=== PATIENT | female | born 1975 | race Caucasian/White ===

== ENCOUNTER 2016-11-11 06:44 | Day surgery (SDC) | payer BC ==
[2016-11-07 14:41] VITALS: BMI 34.0
[2016-11-11] MEDS ORDERED: CEFAZOLIN 2 GM in DEXTROSE 5%-WATER - 100 ML IVPB ONE (07:00)
--- NOTE | 2016-11-11 07:01 | HP ---
History & Physical Update - History History: No Change - Physical Physical: No Change - Assessment Assessment: No Change - Plan Plan: No Change (Endometriosis, pelvic pain - for definitive therapy with hysterectomy)
[2016-11-11] MEDS ORDERED: MIDAZOLAM HCL 2 MG/2 ML SINGLE DOSE VIAL ONE (08:06)
[2016-11-11] MEDS ORDERED: ROCURONIUM BROMIDE 50 MG/5 ML VIAL ONE (09:37)
[2016-11-11] MEDS ORDERED: NEOSTIGMINE METHYLSULFATE 0.5 MG/ML - 10 ML MDV ONE (10:14)
[2016-11-11] MEDS ORDERED: METOPROLOL TARTRATE 5 MG/5 ML VIAL ONE (10:14)
[2016-11-11] MEDS ORDERED: GLYCOPYRROLATE 0.2 MG/1 ML VIAL ONE (10:14)
[2016-11-11] MEDS ORDERED: BUPIVACAINE HCL/PF 0.5% (5MG/ML) 10 ML VIAL ONE (10:16)
[2016-11-11] MEDS ORDERED: ceFAZolin SODIUM 1 GM VIAL ONE ×2 (10:18→10:29)
[2016-11-11] MEDS ORDERED: KETOROLAC TROMETHAMINE 30 MG/1 ML VIAL ONE (10:18)
[2016-11-11] MEDS ORDERED: LIDOCAINE HCL/PF 2% SDV 5ML VIAL ONE (10:18)
[2016-11-11] MEDS ORDERED: DEXAMETHASONE SOD PHOSPHATE 4 MG/1 ML VIAL ONE (10:18)
[2016-11-11] MEDS ORDERED: LIDOCAINE HCL 2% JELLY (5 ML/TUBE) ONE (10:18)
[2016-11-11] MEDS ORDERED: oxyCODONE HCL 5 MG TABLET PO PRN (10:34)
[2016-11-11] MEDS ORDERED: IBUPROFEN 800 MG/8 ML IJ IVPB PRN (10:34)
[2016-11-11] MEDS ORDERED: SENNOSIDES/DOCUSATE COMBO (SENNA PLUS) TABLET (UD) PO PRN (10:34)
[2016-11-11] MEDS ORDERED: IBUPROFEN 800 MG/8 ML IJ IVPB ONE (10:36)
--- NOTE | 2016-11-11 10:39 | OP ---
Operative Note - Note: Operative Date: 11/11/16 Pre-Operative Diagnosis: endometriosis, pelvic pain Operation: Robotic Assisted Total Laparoscopic Hysterectomy, right salpingectomy , RIVER Findings: adhesions from omentum to anterior abdominal wall, normal appearing uterus, right fallopian tube right and ovary Surgeon: Teresa Maxwell Job Placement Specialist: Daina Hanna Anesthesiologist/ENGRAVER HAND HARD METALS: Julia Kumar MD Anesthesia: General Specimens Removed: uterus, cervix, right fallopian tube, left peritoneal cyst X 2 Estimated Blood Loss (mls): 50 Drains & Tubes with Location: bourgeois catheter with 150cc of clear yellow urine Fluid Volume Replaced (mls): 1,500 (crystalloid) Operative Report Dictated: Yes
[2016-11-11] MEDS ORDERED: LACTATED RINGERS SOLUTION 1,000 ML IV SCH (10:45)
[2016-11-11] MEDS: ONDANSETRON 4 MG/2 ML VIAL IVPUSH PRN ×2 (11:25→17:50)
--- NOTE | 2016-11-11 12:46 | OP ---
DATE OF OPERATION: 11/11/2016 PREOPERATIVE DIAGNOSIS: Pelvic pain with known endometriosis. POSTOPERATIVE DIAGNOSIS: Pelvic pain with known endometriosis. PROCEDURE: Robotic-assisted laparoscopic total hysterectomy and right salpingectomy. SURGEON: Teresa Maxwell DO MANAGER PATIENT: Daina Hanna MD ANESTHESIA: General by Dr. Belinda Kumar COMPLICATIONS: None. ESTIMATED BLOOD LOSS: 60 mL. Sponge, needle, and instrument count was reported as correct. DISPOSITION: Stable to PACU. BRIEF HISTORY AND PROCEDURE: The patient is a 41-year-old female who has been seen in the office with a many-year history of endometriosis status post several laparoscopic procedures for endometriosis excision. The patient desires definitive management for her endometriosis at this time. The patient was counseled on all of her options, and she would like to undergo a hysterectomy. Due to her prior history of endometriosis and several surgeries, the plan was made to attempt robotic hysterectomy with possible conversion to laparotomy. The patient was aware of the possibility, and consent for a robotic-assisted laparoscopic hysterectomy was signed in the office. The patient was admitted to [facility] on November 11, 2016 where consents were reconfirmed. DESCRIPTION OF PROCEDURE: She was then taken back to the operating room where she was given general anesthesia and placed in the dorsal lithotomy position. was then prepped and draped in the usual sterile fashion. A hard time-out was performed. A Haro catheter was placed under sterile conditions, and a medium VCare device was placed intravaginally as a uterine manipulator. A 5-mm skin incision was then created in the left upper quadrant approximately 2 fingerbreadths below the lowest rib in the mid clavicular line. A Veress needle was placed in the abdomen, and the abdomen was insufflated with CO2 gas. A 5-mm trocar was placed, and a camera was inserted. Some adhesions from the omentum to the anterior abdominal wall were appreciated at this time; however, the uterus appeared to be free of adhesions, and the pelvis appeared to be clear of adhesion. At this point, an 8-mm skin incision was created supraumbilically, and an 8-mm trocar was placed under direct visualization using the harmonic device. The ventral adhesion was taken down at this time. Next, the remainder of the trocars for the robot were placed under direct visualization. The robot was docked. Attention was then turned left side where the left fallopian tube was clamped, cauterized, and cut with the vessel sealer device at the cornua and then the uteroovarian ligament and anastomosis was clamped, cut, and ligated in several passes with the vessel sealer device. Next, the round ligament was identified, clamped, cut, and ligated with the vessel sealer device then the bladder flap was begun on the left side and carried anteriorly to the right side using sharp dissection. The left uterine artery was identified, clamped, cut, and ligated in several passes with the vessel sealer device until we reached the level of the uteroovarian ligaments. The same was repeated on the right side of the uterus starting with the right fallopian tube and uteroovarian anastomosis, which was clamped, cut, and ligated with the vessel sealer device in several passes and then the round ligament was clamped, cauterized, and cut with the vessel sealer device. A bladder flap was extended all the way to the right side at this time, and the bladder was dissected off its attachment to the lower uterine segment and the cervix at this time. The right uterine artery was identified, clamped, cut, and ligated in several passes with the vessel sealer device down to the level of the uterosacral ligaments. Then the colpotomy was begun anteriorly and carried in a 360-degree fashion until the uterus was detached from the cervical vaginal junction. The uterus was then removed through the vagina at this time. The right fallopian tube was identified and dissected off its attachment to the ovary and the mesoappendix using the vessel sealer device then removed through the vagina. Two left peritoneal cysts were excised and removed through the vagina at this time. The pelvis was irrigated and suctioned. Using the 0 V-Lock suture, the vaginal cuff was reapproximated in a running fashion. The pelvis was copiously irrigated and suctioned at this time. Hemostasis was appreciated. The ureters were inspected and noted to be within normal caliber and peristalsing. The needle was then removed through the trocar at this time. Again, inspection of the surgical site revealed hemostasis. Instruments were then removed under direct visualization. The abdomen was desufflated. The trocars were removed. The robot was then docked. The skin was reapproximated using 0 Biosyn suture and skin glue. Marcaine was injected in the incision sites. The Haro catheter was noted to be draining clear yellow urine. There was 150 mL of clear yellow urine removed from the catheter at this time. The patient was then awoken from anesthesia. Sponge, needle, and instrument count had been reported to be correct. She is now recovering in stable condition in the PACU at the time of this dictation. TERESA MAXWELL DO /[id number]
--- NOTE | 2016-11-11 15:31 | CONSULT ---
Consult - text type - Consultation Consultation Note: NEUROLOGY CONSULTATION is greatly appreciated: This 41 yo RH woman is examined in the PACU with her at the bedside. She known to me from prior treatment for Migraine headaches which responded to Topiramate. In recent years she has been followed by Dr. Butler and takes Fioricet "Almost every day.' Now s/p Hysterectomy for endometriosis and chronic pelvic pain. I the past, the patient has had multiple doses of Propofol for endoscopic exams. She notes that "most of the time" she is slow to wake up and then goes through a period of involuntary "shaking" without obscuration of consciousness.The same thing happened today after general anesthesia with RN's noting "Tremors" of of both arms > legs lasting for a few hours and now having resolved. The patient feels fine although still "groggy." The did not see this, or any other, episode of shaking and has never witnessed shaking at home. ROS sig for chronic nocturnal leg pains and insomnia. NAV: Obses. Neck supple. Cor reg. NEURO: Awake, alert, Ox3. MS/speech: Normal CN II-XII: Normal Motor: No drift, tremor or myoclonus. Normal strength, tone , bulk, and reflexes. Toes downgoing. Coord: No FTN dystaxia Sensory: Normal Gait: deferred. IMP: 1. Normal neurological exam. 2. Patients can exhibit both shaking/rigors (such as seen with infection ) as well as myoclonic jerks when coming out of anesthesia. 3. Migraine headaches/Chronic daily headache syndrome (drug rebound headaches due to Fioricet). 4. Restless LImbs Syndrome (RLS). Suggestions: Reassure the patient. Neuro f/u as outpatient to D/C Fioricat and establish an effective prophylactic strategy for Chronic migraines and to start a dopamine agonist for chronic RLS/insomnia. Thank you very much, Chema Galeana MD
[2016-11-11] MEDS: HYDROmorphone HCL CARPU-JECT 1 MG/1 ML DISP.SYRIN IVPB PRN ×2 (16:42→21:17)
[2016-11-11] MEDS ORDERED: IBUPROFEN 600 MG TABLET (FP) PO PRN ×2 (19:00→20:00)
[2016-11-12] MEDS: HYDROmorphone HCL CARPU-JECT 1 MG/1 ML DISP.SYRIN IVPB PRN (04:12)
[2016-11-12] MEDS: oxyCODONE HCL 5 MG TABLET PO PRN ×3 (08:04→21:44)
[2016-11-12] MEDS: ACETAMINOPHEN 325 MG TABLET (FP) PO PRN ×3 (08:05→21:45)
[2016-11-12] MEDS: SIMETHICONE 80 MG TAB.CHEW (FP) PO PRN ×3 (08:06→21:43)
[2016-11-12] MEDS ORDERED: traMADol HCL 50 MG TABLET PO PRN (08:14)
[2016-11-12] MEDS ORDERED: ACETAMINOPHEN/CAFFEINE/BUTALBITAL 1 TAB PO PRN (08:14)
[2016-11-12 08:26] LABS: BASOPHIL 0.5 % (0-2.0); MCH 26.9 pg (25.7-33.7); MCHC 32.3 g/dl (32.0-36.0); MEAN CELL VOLUME 83.2 fl (80-96); MEAN PLT VOLUME 8.9 fl (7.5-11.1); NEUTROPHILS 86.6 % (42.8-82.8); PLATELET COUNT 243 K/MM3 (134-434); WHITE BLOOD COUNT 14.8 K/mm3 (4.0-10.0)
[2016-11-12] MEDS: ENOXAPARIN NA (PORCINE) 40 MG/0.4 ML DISP.SYRIN SQ SCH (09:12)
[2016-11-12] MEDS: METOPROLOL SUCCINATE 25 MG TAB.SR.24H (FP) PO SCH (09:12)
[2016-11-12] MEDS: ASPIRIN COATED 81 MG TABLET.EC PO SCH (09:12)
[2016-11-12] MEDS ORDERED: IBUPROFEN 800 MG/8 ML IJ IVPB PRN (09:15)
--- NOTE | 2016-11-12 09:20 | PN ---
Progress Note (short form) - Note Progress Note: Post op day#1.S/P Robotic laproscopic hysterectomy under Ga uneventful Patient stable but c/o pain score of 7-8/10 on mutiple pain medication.She want to take very little narcotics as they cause her constipation and nausia .So put her on Caldolor IV.No any anesthesia related problem.Will f/u if needed.
--- NOTE | 2016-11-12 10:05 | PN ---
Progress Note, Physician History of Present Illness: Pt POD#1 s/p Robotic Hysterectomy for endometriosis. Feeling well overall but having some pain. Has h/o SVT and has internal internet marketing consultant connected which is transmitting information to her senior geotechnical engineer at [facility]. Feels no CP/SOB/ Palpitations at this time. Had some palpitations earlier today but has resolved. +Void, tolerated breakfast this a.m. Some nausea but no emesis. No other complaints. - Current Medication List Current Medications: Active Medications Acetaminophen (Tylenol -) 650 mg PO Q4H PRN PRN Reason: FEVER OR PAIN Last Admin: 11/12/16 08:05 Dose: 650 mg Acetaminophen/Butalbital/Caffeine (Fioricet -) 1 tablet PO PRN PRN PRN Reason: MIGRAINE Aspirin (Ecotrin -) 81 mg PO DAILY [facility] Last Admin: 11/12/16 09:12 Dose: 81 mg Enoxaparin Sodium (Lovenox -) 40 mg SQ DAILY [facility] Last Admin: 11/12/16 09:12 Dose: 40 mg Hydromorphone HCl (Dilaudid Injection -) 1 mg IVPB Q4H PRN PRN Reason: PAIN Last Admin: 11/12/16 04:12 Dose: 1 mg Lactated Ringer's (Lactated Ringers Solution) 1,000 mls @ 125 mls/hr IV ASDIR [facility] Last Admin: 11/11/16 23:00 Dose: 125 mls/hr Ibuprofen (Motrin -) 600 mg PO Q4H PRN PRN Reason: PAIN Ibuprofen (Caldolor Injection -) 600 mg IVPB Q6H PRN PRN Reason: FEVER Metoprolol Succinate (Toprol Xl -) 25 mg PO DAILY [facility] Last Admin: 11/12/16 09:12 Dose: 25 mg Oxycodone HCl (Roxicodone -) 5 mg PO Q4H PRN PRN Reason: PAIN LEVEL 1-5 Last Admin: 11/12/16 08:04 Dose: 5 mg Oxycodone HCl (Roxicodone -) 10 mg PO Q4H PRN PRN Reason: PAIN LEVEL 6-10 Senna/Docusate Sodium (Pericolace -) 2 tablet PO HS PRN PRN Reason: CONSTIPATION Simethicone (Mylicon -) 80 mg PO Q4H PRN PRN Reason: GAS Last Admin: 11/12/16 08:06 Dose: 80 mg Tramadol HCl (Ultram -) 50 mg PO PRN PRN PRN Reason: NECK PAIN - Objective Vital Signs: Vital Signs Temperature 98.8 F 11/12/16 08:00 Pulse Rate 66 11/12/16 08:00 Respiratory Rate 18 11/12/16 08:00 Blood Pressure 100/54 11/12/16 08:00 O2 Sat by Pulse Oximetry (%) 98 11/11/16 21:00 Constitutional: Yes: Well Nourished, No Distress, Calm Eyes: Yes: EOM Intact HENT: Yes: Atraumatic, Normocephalic Cardiovascular: Yes: Regular Rate and Rhythm Respiratory: Yes: Regular Gastrointestinal: Yes: Soft Breast(s): Yes: WNL Musculoskeletal: Yes: WNL Extremities: Yes: WNL Wound/Incision: Yes: Clean/Dry, Well Approximated, Open to air Neurological: Yes: Alert, Oriented Psychiatric: Yes: Alert, Oriented Labs: CBC, BMP 11/12/16 07:50 Problem List - Problems (1) History of robot-assisted laparoscopic hysterectomy Code(s): Z90.710 - ACQUIRED ABSENCE OF BOTH CERVIX AND UTERUS Assessment/Plan Pt doing well regular diet encourage ambulation lovenox for VTE PPX awaiting cardiology consultation 2/2 ICM appreciate neurology consult for myoclonic reaction to propofol which has now resolved plan for discharge home later if able to tolerate diet, ambulate, void, pass flatus
--- NOTE | 2016-11-12 15:21 | PN ---
Progress Note (short form) - Note Progress Note: Chief Complaint: Events noted notes reviewed. Abdominal discomfort postoperatively, intermittent dizziness, intermittent palpitations with no clinical evidence of sustained arrhythmia History of Present Illness: Seen and examined. Full consult dictated Medications: Current Medications Acetaminophen (Tylenol -) 650 mg PO Q4H PRN PRN Reason: FEVER OR PAIN Last Admin: 11/12/16 08:05 Dose: 650 mg Acetaminophen/Butalbital/Caffeine (Fioricet -) 1 tablet PO PRN PRN PRN Reason: MIGRAINE Aspirin (Ecotrin -) 81 mg PO DAILY [facility] Last Admin: 11/12/16 09:12 Dose: 81 mg Enoxaparin Sodium (Lovenox -) 40 mg SQ DAILY [facility] Last Admin: 11/12/16 09:12 Dose: 40 mg Hydromorphone HCl (Dilaudid Injection -) 1 mg IVPB Q4H PRN PRN Reason: PAIN Last Admin: 11/12/16 04:12 Dose: 1 mg Lactated Ringer's (Lactated Ringers Solution) 1,000 mls @ 125 mls/hr IV ASDIR [facility] Last Admin: 11/11/16 23:00 Dose: 125 mls/hr Ibuprofen (Motrin -) 600 mg PO Q4H PRN PRN Reason: PAIN Ibuprofen (Caldolor Injection -) 600 mg IVPB Q6H PRN PRN Reason: FEVER Last Admin: 11/12/16 10:47 Dose: 600 mg Metoprolol Succinate (Toprol Xl -) 25 mg PO DAILY [facility] Last Admin: 11/12/16 09:12 Dose: 25 mg Oxycodone HCl (Roxicodone -) 5 mg PO Q4H PRN PRN Reason: PAIN LEVEL 1-5 Last Admin: 11/12/16 08:04 Dose: 5 mg Oxycodone HCl (Roxicodone -) 10 mg PO Q4H PRN PRN Reason: PAIN LEVEL 6-10 Senna/Docusate Sodium (Pericolace -) 2 tablet PO HS PRN PRN Reason: CONSTIPATION Simethicone (Mylicon -) 80 mg PO Q4H PRN PRN Reason: GAS Last Admin: 11/12/16 08:06 Dose: 80 mg Tramadol HCl (Ultram -) 50 mg PO PRN PRN PRN Reason: NECK PAIN Review of Systems - Review of Systems Constitutional: denies: Chills, Fever Cardiovascular: As noted above Respiratory: denies: Cough or sputum production Gastrointestinal: reports: Abdominal Pain, denies nausea, vomiting, diarrhea or constipation Genitourinary: denies: Dysuria Musculoskeletal: denies: Joint Pain Neurological: No symptoms reported Vital Signs: Last Vital Signs Temp Pulse Resp BP Pulse Ox 98.1 F 72 18 93/44 98 11/12/16 14:00 11/12/16 14:00 11/12/16 14:00 11/12/16 14:00 11/11/16 21:00 Intake & Output 11/09/16 11/10/16 11/11/16 11/12/16 23:59 23:59 23:59 23:59 Intake Total 3700 1400 Output Total 3500 700 Balance 200 700 HEENT: RENETTA, EOMI Unicteric Sclera Neck: Supple Negative JVD No Bruit Cardiovascular: Pulse regular rate and rhythm no murmurs, clicks or gallops Respiratory: Clear to auscultation and percussion Gastrointestinal: Soft Benign Normal Bowel Sounds Ext: No Edema Labs: CBC, BMP 11/12/16 07:50 Assessment/Plan ASSESSMENT: 1. Post Robotic hysterectomy for management of endometriosis 2. History of supraventricular tachycardia status post radiofrequency ablation of an accessory pathway 3. Recurrent palpitations with no clear evidence of recurrent supraventricular tachycardia, possible inappropriate sinus tachycardia currently on beta yoni therapy (post [employer]'s LINQ implant, loop recorder declined repeat EP study) 4. Syncope neurocardiogenic syncope to be considered as a differential unclear if vasodepressor verses cardioinhibitory, unlikely to be vasovagal syncope, currently persistent dizziness clinical presentation of which is suggestive of vestibular organ dysfunction 5. History of PFO, patent foramen ovale on daily Ecotrin therapy 6. Post operative myoclonic jerks most likely related to anesthesia 7. History of migraine headaches PLAN: 1. Continue Toprol-XL 2. Continue Ecotrin 3. Pain management as per the primary team 4. Patient to followup with her motorcoach driver at [facility] for further evaluation and management of the above-noted arrhythmia 5. Patient was advised to proceed with tilt table testing at a later date once fully recovered from the above-noted procedure for evaluation of the above- noted syncope Rhina Syed MD
--- NOTE | 2016-11-12 16:02 | PATH ---
Surgical Pathology Report Patient Name: SIMONE AVILA [facility]. Rec. #: [id number] /Age/Gender: 1975 (Age: 41) / F Account: [id number] Location: [facility] OBS/CATTLE DEHORNER Taken: 11/11/2016 Received: 11/11/2016 Reported: 11/12/2016 Physicians: Teresa Maxwell M.D. Specimen(s) Received A: UTERUS AND CERVIX B: RIGHT FALLOPIAN TUBE C: PERITONEAL CYST Clinical History Pelvic pain, endometriosis Final Diagnosis A. UTERUS AND CERVIX, TOTAL HYSTERECTOMY: CERVIX: WITHOUT SIGNIFICANT PATHOLOGIC CHANGES. ENDOMETRIUM: PREDOMINANTLY INACTIVE. MYOMETRIUM: ADENOMYOSIS. UTERINE SEROSA: WITHOUT SIGNIFICANT PATHOLOGIC CHANGES. B. FALLOPIAN TUBE, RIGHT, SALPINGECTOMY: BENIGN FALLOPIAN TUBE WITH PARATUBAL CYST. C. PERITONEAL CYST, EXCISION: BENIGN SEROUS CYST AND CYSTIC HYDROSALPINX. Electronically Signed Chu Ang M.D. Gross Description A. Received in formalin labeled "uterus and cervix" is a 63 g uterus with an attached cervix and no attached adnexa. The specimen measures 7.7 cm from superior to inferior, 4.2 cm from left to right and 3.5 cm from anterior to posterior. The serosa is pink-cobb and smooth. The attached cervix measures 2.5 cm in length and averages 2.2 cm in diameter. The ectocervix is pink-cobb, smooth and glistening. The endocervix is unremarkable. The endometrial cavity measures 3 cm in length and 1.5 cm from cornu to cornu. The endometrium is red and averages 0.1 cm in thickness. The myometrium is cobb-pink and averages 1.7 cm in thickness. No intramural nodules are identified. Ethylene Oxide Panelboard Operator sections are submitted in 6 cassettes as follows: 1-anterior cervix; 2-posterior cervix; 1-7-hwbynria endomyometrium; 6-1-fdyhfvwuy endomyometrium. B. Received in formalin labeled "right fallopian tube" is a 3 cm in length fimbriated fallopian tube. The outer surface is warren--purple. Sectioning reveals unremarkable lumen. Ethylene Oxide Panelboard Operator sections are submitted in 2 cassettes as follows: 1-fimbria; 2-cross sections of fallopian tube. C. Received in formalin labeled "peritoneal cyst" are 2 cobb, irregular portions of soft tissue measuring 0.7 and 1.0 cm in greatest dimension, consistent with portions of a cyst. The specimens are bisected and entirely submitted in one cassette. 11/11/201611/11/2016
--- NOTE | 2016-11-12 17:05 | CONS ---
DATE OF CONSULTATION: DATE OF DICTATION: 11/12/2016 REQUESTING PHYSICIAN: Teresa Maxwell DO REASON FOR CONSULTATION: Postoperative evaluation of cardiac arrhythmia. HISTORY OF PRESENT ILLNESS: A 41-year-old female with known history of paroxysmal supraventricular tachycardia related to accessory pathway post radiofrequency ablation in 2004, patent foramen ovale on daily Ecotrin therapy, and in addition, endometriosis, who was admitted to [facility] electively for purpose of robotic hysterectomy for management of the above-noted endometriosis. Postoperative course was complicated by myotonic jerks, upper extremity and lower extremity muscular twitching which was attributed to anesthesia. Cardiovascular evaluation was requested in view of persistent palpitations and intermittent dizziness. Patient recently was evaluated by her refueler in [facility] [place] for recurrent palpitations and inhibition for a syncopal episode complicated by patellar fracture. Repeat electrophysiology study was recommended. Patient was reluctant to proceed with above. Subsequently, an implantable loop recorder was implanted for further evaluation and potential management. In addition, patient was initiated on beta-yoni therapy with Toprol-XL at 25 mg once daily. Patient has been reporting recurrent palpitations; some of which are transitory; some of which persist for a few minutes, and in addition, has been reporting intermittent dizziness which is occasionally exacerbated by certain movements. Dizziness is not necessarily associated with the above-noted palpitations. As noted above, a single episode of syncope was reported. Patient reports fatigue and tiredness. Patient denies any chest discomfort. Patient reports dyspnea with moderate physical exertion. Patient denies any orthopnea, paroxysmal nocturnal dyspnea, or peripheral edema. Tilt table testing was recommended by her refueler, which has not been performed as of yet. The above-noted LINQ monitor was implanted in May of this year, and thus far, no sustained arrhythmia has been diagnosed. PAST MEDICAL HISTORY: Paroxysmal supraventricular tachycardia status post radiofrequency ablation, patent foramen ovale noted on echocardiography with no evidence of intracardiac shunting, migraine headaches, endometriosis. Denies any history of hypertensive cardiovascular disease, diabetes mellitus, or hypercholesterolemia. SOCIAL HISTORY: Denies smoking. FAMILY HISTORY: No history of premature coronary artery disease. ALLERGIES: Intolerance to PROPOFOL THERAPY ADMINISTRATION. MEDICAL THERAPY AT HOME: Included Toprol-XL 25 mg once a day and Ecotrin 81 mg once a day. REVIEW OF SYSTEMS: Head and Neck: Denies headache, photophobia, blurring of vision. Respiratory: No cough or sputum production. Cardiovascular: As noted above. Gastrointestinal: No nausea, vomiting, diarrhea. Currently complaining of abdominal discomfort. Genitourinary: No urgency or frequency. History of endometriosis. Musculoskeletal: No symptoms reported. PHYSICAL EXAMINATION: Vital Signs: Blood pressure 93/44 mmHg. Pulse rate is 72 beats per minute. Head and Neck: Pupils are equal and reactive to light and accommodation. Extraocular muscles are intact. Anicteric sclerae. Negative JVD. No bruit appreciated. Chest: Clear on auscultation and percussion. Cardiovascular: S1, S2. Regular. No murmur, clicks, or gallops. Abdomen: Soft, benign. Normoactive bowel sounds. Extremities: Negative edema. Intact distal pulses. No calf tenderness. DIAGNOSTIC DATA: Electrocardiogram reveals sinus rhythm with a short GA interval, nonspecific T-wave abnormality. CBC included white cell count 14.8, hemoglobin 12.8, platelet count 243. ASSESSMENT: 1. Post robotic hysterectomy for management of endometriosis. 2. History of supraventricular tachycardia status post radiofrequency ablation of an accessory pathway. 3. Recurrent palpitations with no clear evidence of recurrent supraventricular tachycardia, possible inappropriate sinus tachycardia, currently on beta-yoni therapy, post [employer] LINQ implant loop recorder. Patient had declined repeat electrophysiology study. 4. Syncope, neurocardiogenic syncope to be considered as a differential. Unclear if vasodepressor versus cardioinhibitory, unlikely to be vasovagal syncope. Currently persistent dizziness. Clinical presentation of which is suggestive of vestibular organ dysfunction. 5. History of patent foramen ovale on daily Ecotrin therapy 6. Postoperative myoclonic jerks, most likely related to anesthesia. 7. History of migraine headaches. RECOMMENDATION: 1. Continuation of Toprol-XL therapy. 2. Continuation of Ecotrin therapy. 3. Pain management as per the primary team. 4. Patient is to follow up with her refueler and obstetrics and gynecology professor at [facility] for further evaluation and management of the above-noted arrhythmia. 5. Patient was advised to proceed with tilt table testing at a later date once fully recovered from the above-noted procedure for evaluation of the above-noted syncope. Discussed in detail with the patient. Thank you for the kind referral. KVNG REAVES M.D. ISH/[id number]
[2016-11-12] MEDS ORDERED: ONDANSETRON 4 MG TABLET PO PRN (17:22)
--- NOTE | 2016-11-12 17:24 | PN ---
Progress Note, Physician History of Present Illness: Pt seen/evaluated. Feelig nauseated/dizzy with ambulation. No emesis. Pain better controlled. - Current Medication List Current Medications: Active Medications Acetaminophen (Tylenol -) 650 mg PO Q4H PRN PRN Reason: FEVER OR PAIN Last Admin: 11/12/16 15:22 Dose: 650 mg Acetaminophen/Butalbital/Caffeine (Fioricet -) 1 tablet PO PRN PRN PRN Reason: MIGRAINE Aspirin (Ecotrin -) 81 mg PO DAILY [facility] Last Admin: 11/12/16 09:12 Dose: 81 mg Enoxaparin Sodium (Lovenox -) 40 mg SQ DAILY [facility] Last Admin: 11/12/16 09:12 Dose: 40 mg Hydromorphone HCl (Dilaudid Injection -) 1 mg IVPB Q4H PRN PRN Reason: PAIN Last Admin: 11/12/16 04:12 Dose: 1 mg Lactated Ringer's (Lactated Ringers Solution) 1,000 mls @ 125 mls/hr IV ASDIR [facility] Last Admin: 11/11/16 23:00 Dose: 125 mls/hr Ibuprofen (Motrin -) 600 mg PO Q4H PRN PRN Reason: PAIN Ibuprofen (Caldolor Injection -) 600 mg IVPB Q6H PRN PRN Reason: FEVER Last Admin: 11/12/16 10:47 Dose: 600 mg Metoprolol Succinate (Toprol Xl -) 25 mg PO DAILY [facility] Last Admin: 11/12/16 09:12 Dose: 25 mg Oxycodone HCl (Roxicodone -) 5 mg PO Q4H PRN PRN Reason: PAIN LEVEL 1-5 Last Admin: 11/12/16 15:22 Dose: 5 mg Oxycodone HCl (Roxicodone -) 10 mg PO Q4H PRN PRN Reason: PAIN LEVEL 6-10 Senna/Docusate Sodium (Pericolace -) 2 tablet PO HS PRN PRN Reason: CONSTIPATION Simethicone (Mylicon -) 80 mg PO Q4H PRN PRN Reason: GAS Last Admin: 11/12/16 15:23 Dose: 80 mg Tramadol HCl (Ultram -) 50 mg PO PRN PRN PRN Reason: NECK PAIN - Objective Vital Signs: Vital Signs Temperature 98.1 F 11/12/16 14:00 Pulse Rate 72 11/12/16 14:00 Respiratory Rate 18 11/12/16 14:00 Blood Pressure 93/44 11/12/16 14:00 O2 Sat by Pulse Oximetry (%) 98 11/11/16 21:00 Constitutional: Yes: Well Nourished, No Distress, Calm Eyes: Yes: Conjunctiva Clear, EOM Intact HENT: Yes: Atraumatic, Normocephalic Neck: Yes: Supple, Trachea Midline Cardiovascular: Yes: Regular Rate and Rhythm, Other (has internal site monitor in place) Respiratory: Yes: Regular, CTA Bilaterally Gastrointestinal: Yes: Normal Bowel Sounds, Soft, Tenderness Extremities: Yes: WNL Edema: No Wound/Incision: Yes: Clean/Dry, Well Approximated Neurological: Yes: Alert, Oriented Psychiatric: Yes: Alert, Oriented Labs: CBC, BMP 11/12/16 07:50 Problem List - Problems (1) History of robot-assisted laparoscopic hysterectomy Code(s): Z90.710 - ACQUIRED ABSENCE OF BOTH CERVIX AND UTERUS (2) Nausea Code(s): R11.0 - NAUSEA Assessment/Plan Pt doing well regular diet encourage ambulation lovenox for VTE PPX appreciate cardiology and neuro consult due to dizziness and nausea will observe overnight zofran for nausea repeat CBC for dizziness if stable ok to d/c home in a.m.
--- NOTE | 2016-11-12 17:29 | DS ---
Physical Examination Vital Signs: Vital Signs Temperature 98.1 F 11/12/16 14:00 Pulse Rate 72 11/12/16 14:00 Respiratory Rate 18 11/12/16 14:00 Blood Pressure 93/44 11/12/16 14:00 O2 Sat by Pulse Oximetry (%) 98 11/11/16 21:00 Labs: CBC, BMP 11/12/16 07:50 Discharge Summary Reason For Visit: ENDOMETRIOSIS Current Active Problems History of robot-assisted laparoscopic hysterectomy (Acute) Nausea (Acute) Condition: Good - Instructions Diet, Activity, Other Instructions: Physical activity Resume your normal everyday activity as tolerated no heavy lifting or strenuous exercise until seen by your surgeon. You may walk unlimited amounts and climb stairs. You may resume driving the car when you feel safe and comfortable behind the wheel. No sexual activity as instructed for 8 weeks. Wound care If there is glue on the skin leave tit in place. It will peel off in the next 7 to 10 days. Do Not Peel it off. You may shower the day after surgery. If there is glue present on the skin, you may shower over them. Diet There are no dietary restrictions. Eat healthy, high-fiber foods. Drink 6 to 8 glasses of liquid each day. This will assist in keeping your bowels regular. Pain management You may take Tylenol or Ibuprofen (for example, Motrin, Advil etc.) for mild pain., If any prescription medication is ordered should be taken as prescribed for moderate to severe pain. Call Dr. Maxwell for any of the following: Severe pain not relieved by medication Fever of 101 or higher Excessive bleeding or drainage on dressing Inability to urinate Call the office at [phone] for an appointment in 14 days. Referrals: Teresa Maxwell DO [Staff Physician] - 2 Weeks Disposition: HOME - Home Medications Comprehensive Discharge Medication List: Ambulatory Orders Acetaminophen/Caffeine/Butalb [Fioricet -] 1 tab PO PRN PRN 11/07/16 Aspirin Coated [Ecotrin -] 81 mg PO DAILY 11/07/16 Metoprolol Succinate [Toprol Xl -] 25 mg PO DAILY 11/07/16 RX: Tramadol HCl 50 mg PO PRN PRN 11/07/16 Ibuprofen [Motrin -] 600 mg PO QID PRN #28 tablet 11/12/16 Oxycodone HCl/Acetaminophen [Percocet 5-325 mg Tablet -] 1 tab PO Q4H PRN #30 tablet MDD 6 11/12/16
[2016-11-13 05:46] VITALS: TEMP 98.1
[2016-11-13] MEDS: oxyCODONE HCL 5 MG TABLET PO PRN (06:06)
[2016-11-13] MEDS: SIMETHICONE 80 MG TAB.CHEW (FP) PO PRN (06:06)
[2016-11-13] MEDS: ACETAMINOPHEN 325 MG TABLET (FP) PO PRN (06:07)
[2016-11-13 08:31] LABS: BASOPHIL 1.1 % (0-2.0); EOSINOPHIL 1.2 % (0-4.5); MCHC 32.2 g/dl (32.0-36.0); MEAN CELL VOLUME 83.8 fl (80-96); MEAN PLT VOLUME 8.5 fl (7.5-11.1); NEUTROPHILS 56.6 % (42.8-82.8); PLATELET COUNT 209 K/MM3 (134-434); WHITE BLOOD COUNT 7.2 K/mm3 (4.0-10.0)
[2016-11-13] MEDS: METOPROLOL SUCCINATE 25 MG TAB.SR.24H (FP) PO SCH (09:19)
[2016-11-13] MEDS: ASPIRIN COATED 81 MG TABLET.EC PO SCH (09:19)
[2016-11-13] MEDS: ENOXAPARIN NA (PORCINE) 40 MG/0.4 ML DISP.SYRIN SQ SCH (09:19)
--- NOTE | 2016-11-13 10:18 | PN ---
Progress Note, Physician History of Present Illness: Feels well, palpitations resolved. - Current Medication List Current Medications: Active Medications Acetaminophen (Tylenol -) 650 mg PO Q4H PRN PRN Reason: FEVER OR PAIN Last Admin: 11/13/16 06:07 Dose: 650 mg Acetaminophen/Butalbital/Caffeine (Fioricet -) 1 tablet PO PRN PRN PRN Reason: MIGRAINE Aspirin (Ecotrin -) 81 mg PO DAILY [facility] Last Admin: 11/13/16 09:19 Dose: 81 mg Enoxaparin Sodium (Lovenox -) 40 mg SQ DAILY [facility] Last Admin: 11/13/16 09:19 Dose: 40 mg Hydromorphone HCl (Dilaudid Injection -) 1 mg IVPB Q4H PRN PRN Reason: PAIN Last Admin: 11/12/16 04:12 Dose: 1 mg Lactated Ringer's (Lactated Ringers Solution) 1,000 mls @ 125 mls/hr IV ASDIR [facility] Last Admin: 11/11/16 23:00 Dose: 125 mls/hr Ibuprofen (Motrin -) 600 mg PO Q4H PRN PRN Reason: PAIN Ibuprofen (Caldolor Injection -) 600 mg IVPB Q6H PRN PRN Reason: FEVER Last Admin: 11/12/16 10:47 Dose: 600 mg Metoprolol Succinate (Toprol Xl -) 25 mg PO DAILY [facility] Last Admin: 11/13/16 09:19 Dose: 25 mg Ondansetron HCl (Zofran -) 4 mg PO Q6H PRN PRN Reason: NAUSEA Last Admin: 11/12/16 18:10 Dose: 4 mg Oxycodone HCl (Roxicodone -) 5 mg PO Q4H PRN PRN Reason: PAIN LEVEL 1-5 Last Admin: 11/13/16 06:06 Dose: 5 mg Oxycodone HCl (Roxicodone -) 10 mg PO Q4H PRN PRN Reason: PAIN LEVEL 6-10 Senna/Docusate Sodium (Pericolace -) 2 tablet PO HS PRN PRN Reason: CONSTIPATION Last Admin: 11/12/16 21:44 Dose: 2 tablet Simethicone (Mylicon -) 80 mg PO Q4H PRN PRN Reason: GAS Last Admin: 11/13/16 06:06 Dose: 80 mg Tramadol HCl (Ultram -) 50 mg PO PRN PRN PRN Reason: NECK PAIN - Objective Vital Signs: Vital Signs Temperature 98.1 F 11/13/16 05:43 Pulse Rate 65 11/13/16 05:43 Respiratory Rate 18 11/13/16 05:43 Blood Pressure 94/59 11/13/16 05:43 O2 Sat by Pulse Oximetry (%) 98 11/11/16 21:00 Constitutional: Yes: No Distress, Calm Neck: Yes: Supple Cardiovascular: Yes: Regular Rate and Rhythm Respiratory: Yes: Regular, CTA Bilaterally Gastrointestinal: Yes: Normal Bowel Sounds, Soft Edema: No Labs: CBC, BMP 11/13/16 07:45 Problem List - Problems (1) History of robot-assisted laparoscopic hysterectomy Code(s): Z90.710 - ACQUIRED ABSENCE OF BOTH CERVIX AND UTERUS (2) Paroxysmal supraventricular tachycardia Code(s): I47.1 - SUPRAVENTRICULAR TACHYCARDIA (3) Status post placement of implantable loop recorder Code(s): Z95.818 - PRESENCE OF OTHER CARDIAC IMPLANTS AND GRAFTS (4) Patent foramen ovale Code(s): Q21.1 - ATRIAL SEPTAL DEFECT (5) Intermittent palpitations Code(s): R00.2 - PALPITATIONS (6) History of radiofrequency ablation procedure for cardiac arrhythmia Code(s): Z98.890 - OTHER SPECIFIED POSTPROCEDURAL STATES Assessment/Plan 1. Post Robotic hysterectomy for management of endometriosis 2. History of supraventricular tachycardia status post radiofrequency ablation of an accessory pathway 3. Recurrent palpitations with no clear evidence of recurrent supraventricular tachycardia, possible inappropriate sinus tachycardia currently on beta yoni therapy (post [employer]'s LINQ implant, loop recorder declined repeat EP study) 4. Syncope neurocardiogenic syncope to be considered as a differential unclear if vasodepressor verses cardioinhibitory, unlikely to be vasovagal syncope, currently persistent dizziness clinical presentation of which is suggestive of vestibular organ dysfunction 5. History of PFO, patent foramen ovale on daily Ecotrin therapy 6. Post operative myoclonic jerks most likely related to anesthesia 7. History of migraine headaches PLAN: 1. Continue Toprol-XL 25 qd 2. Continue Ecotrin 81 qd 3. D/c planning in progress 4. Patient to follow-up with her compass operator at [facility] for further evaluation and management of the above-noted arrhythmia 5. Patient was advised to proceed with tilt table testing at a later date once fully recovered from the above-noted procedure for evaluation of the above- noted syncope
[2016-11-13 12:29] VITALS: BP 114/55; PULSE 73
== END 2016-11-13 12:00 | disposition home or self-care (01) ==
LOC: JASUSAT 06:44 → J3W 14:45 → JASUSAT 11-13 12:00
PROVIDERS: ATTEND Obstetrics & Gynecology
PROC: 0UT54ZZ Resection of Right Fallopian Tube, Percutaneous Endoscopic Approach (ICD-10-PCS; 2016-11-11)
PROC: 8E0W4CZ Robotic Assisted Procedure of Trunk Region, Percutaneous Endoscopic Approach (ICD-10-PCS; 2016-11-11)
PROC: 0UT94ZZ Resection of Uterus, Percutaneous Endoscopic Approach (ICD-10-PCS; principal; 2016-11-11 08:00)
PROC: 0UTC4ZZ Resection of Cervix, Percutaneous Endoscopic Approach (ICD-10-PCS; 2016-11-11 08:00)
DX: N80.9 Endometriosis, unspecified (principal); R10.2 Pelvic and perineal pain
CPT/HCPCS: 58571; S2900; 36415; 84703; 85025; 86850; 86900; 86901; 88305-TC; 88307-TC; 94010; 94760

== ENCOUNTER 2016-12-10 10:03 | Emergency (ER) | payer BC ==
--- NOTE | 2016-12-10 10:26 | PDOC ---
History of Present Illness - General Chief Complaint: Pain Stated Complaint: ABDOMINAL PAIN TO LEFT RIBS,SHOULDER AND NECK Time Seen by Provider: 12/10/16 10:10 History Source: Patient Exam Limitations: No Limitations - History of Present Illness Initial Comments: 41 yo F s/p hysterectomy 3 weeks ago presents with urinary urgency, incontinence , dribbling since her procedure. She states that she had suprapubic pressure at first, now developing L flank pain. Denies fever. +Nausea. She started cipro 4 days ago, without relief. She called Dr. Maxwell yesterday, who recommended CT to r/o bladder injury. Past History - Past Medical History Allergies/Adverse Reactions: Allergies Allergy/AdvReac Type Severity Reaction Status Date / Time propofol [From Diprivan] AdvReac Severe Verified 12/10/16 10:05 Home Medications: Ambulatory Orders Ciprofloxacin HCl [Cipro] 500 mg PO BID 12/10/16 Estrogen,Estela/Me-Testosterone [Estrogen-Methyltestos F.s. 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 No weakness. HEAD, EYES, EARS, NOSE AND THROAT: No change in vision. No ear pain or discharge. No sore throat. CARDIOVASCULAR: No chest pain or shortness of breath. RESPIRATORY: No cough, wheezing, or hemoptysis. GASTROINTESTINAL: +Nausea. No vomiting, diarrhea or constipation. GENITOURINARY: +Dysuria and frequency. MUSCULOSKELETAL: No joint or muscle swelling or pain. No neck or back pain. SKIN: No rash NEUROLOGIC: No headache, vertigo, loss of consciousness, or change in strength/ sensation. ENDOCRINE: No increased thirst. No abnormal weight change. HEMATOLOGIC/LYMPHATIC: No anemia, easy bleeding, or history of blood clots. ALLERGIC/IMMUNOLOGIC: No hives or skin allergy. *Physical Exam - Physical Exam Comments: GENERAL: Awake, alert, and fully oriented, in no acute distress HEAD: No signs of trauma EYES: PERRLA, EOMI, sclera anicteric, conjunctiva clear ENT: Auricles normal inspection, hearing grossly normal, nares patent, oropharynx clear without exudates. Moist mucosa NECK: Normal ROM, supple, no lymphadenopathy, JVD, or masses LUNGS: Breath sounds equal, clear to auscultation bilaterally. No wheezes, and no crackles HEART: Regular rate and rhythm, normal S1 and S2, no murmurs, rubs or gallops ABDOMEN: Soft, +suprapubic tenderness, normoactive bowel sounds. No guarding, no rebound. No masses. +L CVAT. EXTREMITIES: Normal range of motion, no edema. No clubbing or cyanosis. No cords, erythema, or tenderness NEUROLOGICAL: Cranial nerves II through XII grossly intact. Normal speech, normal gait SKIN: Warm, Dry, normal turgor, no rashes or lesions noted. ED Treatment Course - LABORATORY CBC & Chemistry Diagram: 12/10/16 10:50 12/10/16 11:52 Medical Decision Making - Medical Decision Making Pt with urine incontinence since her hysterectomy, also c/o L sided lower rib margin pain. Denies cp, SOB. I discussed the case with Dr. Maxwell via phone. CT a/p without any significant free fluid in the abdomen. We agreed that the next step would be cystogram vs urology eval. Patient declined transfer to [facility] for cystogram. Discussed with Dr. Maxwell- she will obtain urology f/u for patient as an outpatient. *DC/Admit/Observation/Transfer Diagnosis at time of Disposition: Urinary incontinence in female - Discharge Dispostion Disposition: HOME Condition at time of disposition: Stable Admit: No - Patient Instructions Printed Discharge Instructions: Urinary Incontinence -- Female
[2016-12-10 10:28] VITALS: BP 139/82; PULSE 94; TEMP 98.5; BMI 34.0
[2016-12-10 10:36] LABS: URINE BILIRUBIN Negative (NEGATIVE); URINE GLUCOSE (UA) Negative (NEGATIVE); URINE KETONE Negative (NEGATIVE); URINE LEUK ESTERASE Negative (NEGATIVE); URINE NITRITE Negative (NEGATIVE); URINE PROTEIN Negative (NEGATIVE); URINE UROBILINOGEN 0.2 (0.2-1.0)
[2016-12-10 10:41] LABS: URINE APPEARANCE CLOUDY; URINE BLOOD 1+ (NEGATIVE); URINE COLOR YELLOW
[2016-12-10 10:43] LABS: URINE WBC 0-3 (3-5)
[2016-12-10 10:44] LABS: URINE BACTERIA MODERATE /hpf (NEGATIVE)
[2016-12-10 11:01] LABS: BASOPHIL 4.7 % (0-2.0); EOSINOPHIL 4.1 % (0-4.5); MCH 27.5 pg (25.7-33.7); MCHC 33.6 g/dl (32.0-36.0); MEAN CELL VOLUME 81.8 fl (80-96); MEAN PLT VOLUME 9.4 fl (7.5-11.1); NEUTROPHILS 61.4 % (42.8-82.8); PLATELET COUNT 292 K/MM3 (134-434); RDW 13.7 % (11.6-15.6); WHITE BLOOD COUNT 6.8 K/mm3 (4.0-10.8)
[2016-12-10] MEDS ORDERED: ACETAMINOPHEN 325 MG TABLET (FP) PO ONE (11:46)
[2016-12-10] MEDS ORDERED: ACETAMINOPHEN 325 MG TABLET (FP) ONE (11:49)
[2016-12-10 12:23] LABS: ALBUMIN 4.2 g/dl (3.5-5.0); ALK PHOS 63 U/L (32-92); ANION GAP 8 (8-16); BILIRUBIN,TOTAL 0.8 mg/dl (0.2-1.0); CALCIUM 9.7 mg/dl (8.4-10.2); CO2 24 mmol/L (22-28); CREATININE 0.7 mg/dl (0.6-1.3); GLUCOSE,RANDOM 95 mg/dl (74-106); SGOT/AST 16 U/L (10-42); SGPT/ALT 21 U/L (10-40); TOT PROT 7.7 g/dl (6.4-8.3)
--- NOTE | 2016-12-12 13:13 | EKG ---
Test Reason : Blood Pressure : / mmHG Vent. Rate : 072 BPM Atrial Rate : 072 BPM P-R Int : 116 ms QRS Dur : 082 ms QT Int : 388 ms P-R-T Axes : -08 044 033 degrees QTc Int : 424 ms NORMAL SINUS RHYTHM NORMAL ECG WHEN COMPARED WITH ECG OF 22-NOV-2008 09:00, NO SIGNIFICANT CHANGE WAS FOUND Confirmed by GEORGETTE GLAVAN MD ([id number]) on 12/12/2016 1:13:11 PM Referred By: SLY IRELAND Confirmed By:GEORGETTE GALVAN MD
== END 2016-12-10 12:41 | disposition home or self-care (01) ==
LOC: FER 10:03
DX: R32 Unspecified urinary incontinence (principal); I47.1 Supraventricular tachycardia; Z85.3 Personal history of malignant neoplasm of breast
CPT/HCPCS: 36415; 74176-TC; 80053; 81003; 81015; 85025; 87086; 93005; 99284-25

== ENCOUNTER → 2016-12-11 | Day surgery (SDC) | payer BC | END | disposition home or self-care (01) | LOC: JRADIR 09:47 → MERGE 09:47 | PROVIDERS: ATTEND Obstetrics & Gynecology | PROC: BT10YZZ Fluoroscopy of Bladder using Other Contrast (ICD-10-PCS; principal; 2016-12-11) | DX: R39.89 Other symptoms and signs involving the genitourinary system (principal) | CPT/HCPCS: 51600; 74430-TC; 76000-TC; A4358 ==

== ENCOUNTER 2017-06-11 19:26 | Emergency (ER) | payer BC ==
[2017-06-11 19:54] VITALS: BP 149/80; PULSE 87; TEMP 98; BMI 34.0
--- NOTE | 2017-06-11 19:56 | PDOC ---
Rapid Medical Evaluation Time Seen by Provider: 06/11/17 19:50 Medical Evaluation: Allergies Allergy/AdvReac Type Severity Reaction Status Date / Time propofol [From Diprivan] AdvReac Severe Verified 12/10/16 10:05 06/11/17 19:50 Pt seen by her PCP with c/o abdominal pain right side from front to back. + nausea,no vomiting, + diarrhea, started a few days ago. Pt appears uncomfortable but is no respir distress or havng chest pain Suscipious for cholelithiasis vs choledochola CT abd/pelvis, po/IV, labs, lipase
[2017-06-11] MEDS ORDERED: ONDANSETRON 4 MG/2 ML VIAL IVPB ONE (20:16)
[2017-06-11] MEDS ORDERED: SODIUM CHLORIDE 1,000 ML IV STA (20:16)
[2017-06-11] MEDS ORDERED: ACETAMINOPHEN 1000 MG/100 ML VIAL (NON FORMULARY) IVPB ONE (20:16)
[2017-06-11 20:17] LABS: EOS % 1.8 % (0-4.5); HEMATOCRIT 42.5 % (32.4-45.2); HEMOGLOBIN 14.2 GM/dL (10.7-15.3); LYMPH % 23.6 % (8-40); MCH 27.8 pg (25.7-33.7); MCHC 33.4 g/dl (32.0-36.0); MEAN CELL VOLUME 83.3 fl (80-96); MEAN PLT VOLUME 8.5 fl (7.5-11.1); MONO % 6.2 % (3.8-10.2); NEUT % 67.4 % (42.8-82.8); PLATELET COUNT 262 K/MM3 (134-434); RDW 15.6 % (11.6-15.6); WHITE BLOOD COUNT 8.8 K/mm3 (4.0-10.0)
[2017-06-11 20:21] LABS: URINE APPEARANCE CLEAR; URINE BILIRUBIN NEGATIVE (NEGATIVE); URINE BLOOD 1+ (NEGATIVE); URINE COLOR LTYELLOW; URINE GLUCOSE (UA) NEGATIVE (NEGATIVE); URINE KETONE NEGATIVE (NEGATIVE); URINE LEUK ESTERASE NEGATIVE (NEGATIVE); URINE NITRITE NEGATIVE (NEGATIVE); URINE PROTEIN NEGATIVE (NEGATIVE); URINE UROBILINOGEN NEGATIVE mg/dL (0.2-1.0)
[2017-06-11] MEDS ORDERED: ACETAMINOPHEN INJECTION 100 ML IVPB ONE (20:27)
[2017-06-11] MEDS ORDERED: ONDANSETRON 4 MG/2 ML VIAL ONE (20:27)
[2017-06-11 20:30] LABS: INR 1.02 (0.82-1.09); PROTHROMBIN TIME (PATIENT) 11.5 SEC (9.98-11.88)
[2017-06-11 20:33] LABS: ACTIVATED PTT 30.5 SECONDS (26.9-34.4)
--- NOTE | 2017-06-11 20:43 | PDOC ---
History of Present Illness - General Chief Complaint: Pain Stated Complaint: ABD PAIN Time Seen by Provider: 06/11/17 19:50 - History of Present Illness Initial Comments: 06/11/17 20:38 "The patient is a 42 year old female, with a significant past medical history of SVT (s/p ablation), PCOS, endometriosis and breast CA, who presents to the emergency department with abdominal pain, nausea, diarrhea and chills for the last 2-3 days. She describes her abdominal pain as ranging from mild to moderate , localized in the right upper quadrant, with radiation to her mid back. She notes that the pain is exacerbated when she eats, causing her to limit her food intake. She states that she had an ultrasound yesterday and was found to have a small gallstone but no evidence of cholecystitis. She reports that she was constipated prior to today but just started to have diarrhea. Pt denies abdominal distention. The patient denies chest pain, shortness of breath, headache and dizziness. Denies fever, dysuria, frequency, urgency and hematuria. LMP: 10/2016 Allergies: None Past surgical history: Hysterectomy, (x3) Social history: No alcohol, tobacco or drug use reported PMD: Dr. Chaparrita Savage Past History - Past Medical History Allergies/Adverse Reactions: Allergies Allergy/AdvReac Type Severity Reaction Status Date / Time propofol [From Diprivan] AdvReac Severe Verified 06/11/17 19:55 Home Medications: Ambulatory Orders Ciprofloxacin HCl [Cipro] 500 mg PO BID 12/10/16 Estrogen,Estela/Me-Testosterone [Estrogen-Methyltestos F.s. 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 No fever. No weakness. HEAD, EYES, EARS, NOSE AND THROAT: No change in vision. No ear pain or discharge. No sore throat. CARDIOVASCULAR: No chest pain or shortness of breath. RESPIRATORY: No cough, wheezing, or hemoptysis. GASTROINTESTINAL: (+) Abdominal pain, nausea, diarrhea. GENITOURINARY: No dysuria, frequency, or change in urination. MUSCULOSKELETAL: (+) Back pain. No joint or muscle swelling or pain. No neck pain. SKIN: No rash NEUROLOGIC: No headache, vertigo, loss of consciousness, or change in strength/ sensation. ENDOCRINE: No increased thirst. No abnormal weight change. HEMATOLOGIC/LYMPHATIC: No anemia, easy bleeding, or history of blood clots. ALLERGIC/IMMUNOLOGIC: No hives or skin allergy." *Physical Exam - Vital Signs Last Vital Signs Temp Pulse Resp BP Pulse Ox 98.0 F 87 17 149/80 100 06/11/17 19:50 06/11/17 19:50 06/11/17 19:50 06/11/17 19:50 06/11/17 19:50 - Physical Exam Comments: 06/11/17 20:41 """GENERAL: Awake, alert, and fully oriented, in no acute distress HEAD: No signs of trauma EYES: PERRLA, EOMI, sclera anicteric, conjunctiva clear ENT: Auricles normal inspection, hearing grossly normal, nares patent, oropharynx clear without exudates. Moist mucosa NECK: Nontender, no stepoffs, Normal ROM, supple, no lymphadenopathy, JVD, or masses LUNGS: Breath sounds equal, clear to auscultation bilaterally. No wheezes, and no crackles HEART: Regular rate and rhythm, normal S1 and S2, no murmurs, rubs or gallops ABDOMEN: +RUQ and RLQ tenderness, no CVAT EXTREMITIES: Normal range of motion, no edema. No clubbing or cyanosis. No cords, erythema, or tenderness NEUROLOGICAL: Cranial nerves II through XII intact. 5/5 strength and sensation in all extremities, Normal speech, normal gait, normal cerebellar function SKIN: Warm, Dry, normal turgor, no rashes or lesions noted. """ ED Treatment Course - LABORATORY CBC & Chemistry Diagram: 06/11/17 20:09 06/11/17 20:09 - ADDITIONAL ORDERS Additional order review: Laboratory Results 06/11/17 20:10 Urine Color Ltyellow Urine Appearance Clear Urine pH 6.0 Ur Specific [place] 1.017 Urine Protein Negative Urine Glucose (UA) Negative Urine Ketones Negative Urine Blood 1+ H Urine Nitrite Negative Urine Bilirubin Negative Urine Urobilinogen Negative Ur Leukocyte Esterase Negative Medical Decision Making - Medical Decision Making 06/11/17 20:41 42 F with RUQ and RLQ pain. Concerning for acute appy vs cholecystitis. However , given that pt had unremarkable RUQ sono yesterday, brooks is much less likely. Pt also with surgical history significant for hysterectomy and c-sections. Pt does not exhibit any signs of obstruction on exam at this time. - Labs, lipase, UA - CT abdomen/pelvis - Dr. Dumont aware of pt and will follow along 06/11/17 23:[address] shows no evidence of appy, small gallstone once again visualized. UA notable for + RBCs, possibly suggesting renal colic. No stone visualized on CT but there was dilatation of renal collecting systems possibly suggesting passed stone. 06/11/17 23:38 Pt reassessed s/p toradol - now feels significantly better. Tolerating PO. Pt well appearing with good pain control. Clinically stable for DC at this time. I discussed the physical exam findings, ancillary test results and final diagnoses with the patient. I answered all of the patient's questions. The patient was satisfied with the care received and felt comfortable with the discharge plan and treatment plan. The patient agrees to follow up with the primary care physician within 24-72 hours. *DC/Admit/Observation/Transfer Diagnosis at time of Disposition: Abdominal pain - Discharge Dispostion Disposition: HOME Condition at time of disposition: Stable - Referrals Referrals: Chaparrita Savage MD [Primary Care Provider] - Bakari Sin MD., [Staff Physician] - - Patient Instructions Printed Discharge Instructions: DI for Kidney Stones Additional Instructions: You may have had a kidney stone. Drink plenty of water and take motrin as needed for pain. If you experience worsening pain, fevers, vomiting, or any other concerning symptoms, return to the ER immediately. Otherwise, follow up with Dr. Savage within 1 week for a re-evaluation. You will need a referral to a urologist. Ask Dr. Savage for one, or you can call the number provided to make an appointment with a urologist. - Post Discharge Activity - Attestations Physician Attestion: 06/11/17 23:06 I, Dr. Sly Garcia MD, attest that this document has been prepared under my direction and personally reviewed by me in its entirety. I further attest, that it accurately reflects all work, treatment, procedures and medical decision -making performed by me.
[2017-06-11 20:49] LABS: EPI CELLS RARE /HPF (FEW); URINE BACTERIA RARE /hpf (NONE SEEN); URINE MUCUS RARE
[2017-06-11 21:18] LABS: ALBUMIN 3.9 g/dl (3.4-5.0); ALK PHOS 86 U/L (45-117); ANION GAP 9 (8-16); BILIRUBIN,DIRECT < 0.2 mg/dL (0.0-0.2); BILIRUBIN,TOTAL 0.3 mg/dL (0.2-1.0); BLOOD UREA NITROGEN 13 mg/dL (7-18); CALCIUM 8.4 mg/dL (8.5-10.1); CHLORIDE 104 mmol/L (98-107); CO2 25 mmol/L (21-32); CREATININE 0.7 mg/dL (0.55-1.02); GLUCOSE,RANDOM 91 mg/dL (74-106); SGPT/ALT 28 U/L (12-78); SODIUM 138 mmol/L (136-145); TOT PROT 7.7 g/dl (6.4-8.2)
[2017-06-11 21:29] LABS: LIPASE 266 U/L (73-393); POTASSIUM 3.9 mmol/L (3.5-5.1); SGOT/AST 15 U/L (15-37)
--- NOTE | 2017-06-11 21:58 | CONSULT ---
Consult Consult Specialty:: general surgery Referred by:: Chaparrita Savage Reason for Consultation:: Abdominal Pain - History of Present Illness Chief Complaint: right abdominal pain History of Present Illness: 42yo female PMH obesity, SVT s/p ablation, endometreosis, PCOS, breast cancer, s /p robotic hysterectomy s/p left Breast lumpectomy presents to ED complaining of right sided abdominal pain with radiation to the back for 3 days. last regular meal was friday steak and rice, she has limited herself to broth recently. enough pain to stay home from work friday. reports nausea, intermittent diarrhea and some chills with the pain. She denies vomiting, fever , constipation. we were asked to assess. - History Source History Provided By: Patient, Medical Record Limitations to Obtaining History: No Limitations - Past Medical History Reproductive: Yes: Endometriosis ...LMP: 10/27/16 Additional Medical History: obesity - Past Surgical History Past Surgical History: Yes: Hysterectomy - Alcohol/Substance Use Hx Alcohol Use: No - Smoking History Smoking history: Never smoked Have you smoked in the past 12 months: No Home Medications - Allergies Allergies/Adverse Reactions: Allergies Allergy/AdvReac Type Severity Reaction Status Date / Time propofol [From Diprivan] AdvReac Severe Verified 06/11/17 19:55 - Home Medications Home Medications: Ambulatory Orders Ciprofloxacin HCl [Cipro] 500 mg PO BID 12/10/16 Estrogen,Estela/Me-Testosterone [Estrogen-Methyltestos F.s. Tab] 25 mg PO DAILY 12/10/16 Metoprolol Succinate [Toprol Xl -] 25 mg PO DAILY 12/10/16 Physical Exam Vital Signs: Vital Signs Temperature 98.0 F 06/11/17 19:50 Pulse Rate 87 06/11/17 19:50 Respiratory Rate 17 06/11/17 19:50 Blood Pressure 149/80 06/11/17 19:50 O2 Sat by Pulse Oximetry (%) 100 06/11/17 19:50 Vital Signs Period Temp Pulse Resp BP Sys/Miller Pulse Ox Last 24 Hr 98.0 F 87 17 149/80 100 Constitutional: Yes: Calm, Mild Distress, Obese Eyes: Yes: Conjunctiva Clear, EOM Intact HENT: Yes: Atraumatic, Normocephalic Neck: Yes: Supple, Trachea Midline Cardiovascular: Yes: Regular Rate and Rhythm, S1, S2 Respiratory: Yes: Regular, CTA Bilaterally Gastrointestinal: Yes: Normal Bowel Sounds, Soft, Abdomen, Obese, Tenderness, Tenderness, Epigastrium (-murphys sign, tender with mild rebound RLQ and epigastric) ...Rectal Exam: Yes: Deferred Renal/: Yes: CVA Tenderness - Right. No: CVA Tenderness - Left Extremities: No: Cool, Cyanosis Wound/Incision: Yes: Clean/Dry (healed lap sites lower abdomen) Neurological: Yes: Alert, Oriented Psychiatric: Yes: Alert, Oriented Labs: CBC, BMP 06/11/17 20:09 06/11/17 20:09 Urine Test Results Urine Color Ltyellow 06/11/17 20:10 Urine Appearance Clear 06/11/17 20:10 Urine pH 6.0 (5.0-8.0) 06/11/17 20:10 Ur Specific [place] 1.017 (1.001-1.035) 06/11/17 20:10 Urine Protein Negative (NEGATIVE) 06/11/17 20:10 Urine Glucose (UA) Negative (NEGATIVE) 06/11/17 20:10 Urine Ketones Negative (NEGATIVE) 06/11/17 20:10 Urine Blood 1+ (NEGATIVE) H 06/11/17 20:10 Urine Nitrite Negative (NEGATIVE) 06/11/17 20:10 Urine Bilirubin Negative (NEGATIVE) 06/11/17 20:10 Ur Leukocyte Esterase Negative (NEGATIVE) 06/11/17 20:10 Ur Epithelial Cells Rare /HPF (FEW) 06/11/17 20:10 Urine Bacteria Rare /hpf (NONE SEEN) 06/11/17 20:10 Urine Mucus Rare 06/11/17 20:10 Imaging - Results Cat Scan: Report Reviewed (small gallstones. dialated right renal perlvis.), Image Reviewed Problem List - Problems (1) Ureteral stone with hydronephrosis Assessment/Plan: 42yo female with recently diagnosed cholelithiasis by ultrasound has right abdominal and flank pain, no elevated WBC, hematuria on UA and CT showing dilation in renal collecting system. No acute surgicl intervention IVF hydration then PO hydration Analgesia F/u with PMD upon discharge Code(s): N13.2 - HYDRONEPHROSIS WITH RENAL AND URETERAL CALCULOUS OBSTRUCTION (2) Abdominal pain in female patient Code(s): R10.9 - UNSPECIFIED ABDOMINAL PAIN (3) Obesity (BMI 30.0-34.9) Code(s): E66.9 - OBESITY, UNSPECIFIED (4) History of radiofrequency ablation procedure for cardiac arrhythmia Code(s): Z98.890 - OTHER SPECIFIED POSTPROCEDURAL STATES (5) History of robot-assisted laparoscopic hysterectomy Code(s): Z90.710 - ACQUIRED ABSENCE OF BOTH CERVIX AND UTERUS (6) Paroxysmal supraventricular tachycardia Code(s): I47.1 - SUPRAVENTRICULAR TACHYCARDIA
[2017-06-11] MEDS ORDERED: KETOROLAC TROMETHAMINE 15 MG/ML VIAL IVPUSH ONE (22:59)
[2017-06-11] MEDS ORDERED: KETOROLAC TROMETHAMINE 30 MG/1 ML VIAL ONE (23:26)
--- NOTE | 2017-06-12 16:40 | EKG ---
Test Reason : Blood Pressure : / mmHG Vent. Rate : 090 BPM Atrial Rate : 069 BPM P-R Int : 000 ms QRS Dur : 072 ms QT Int : 368 ms P-R-T Axes : 000 039 026 degrees QTc Int : 450 ms POOR DATA QUALITY, INTERPRETATION MAY BE ADVERSELY AFFECTED NORMAL SINUS RHYTHM Confirmed by CHRIS KEN, [place] (2013) on 06/12/2017 4:40:08 PM Referred By: Confirmed By:NY PEREZ MD
== END 2017-06-11 23:58 | disposition home or self-care (01) ==
LOC: SUPCPDRO 19:26 → JER 19:26
PROC: 3E033NZ Introduction of Analgesics, Hypnotics, Sedatives into Peripheral Vein, Percutaneous Approach (ICD-10-PCS; principal; 2017-06-11)
PROC: 3E0333Z Introduction of Anti-inflammatory into Peripheral Vein, Percutaneous Approach (ICD-10-PCS; 2017-06-11)
PROC: 3E033GC Introduction of Other Therapeutic Substance into Peripheral Vein, Percutaneous Approach (ICD-10-PCS; 2017-06-11)
PROC: 3E0337Z Introduction of Electrolytic and Water Balance Substance into Peripheral Vein, Percutaneous Approach (ICD-10-PCS; 2017-06-11)
DX: R10.9 Unspecified abdominal pain (principal); Z85.3 Personal history of malignant neoplasm of breast
CPT/HCPCS: 36415; 74177-TC; 80053; 80076; 81003; 81015; 82550; 83690; 84484; 85025; 85610; 85730; 93005; 93010; 99282-25; J0131; J7030

== ENCOUNTER 2017-06-25 13:42 | Inpatient (IN) | payer BC ==
[2017-06-25 13:46] VITALS: BMI 34.4
[2017-06-25] MEDS ORDERED: ONDANSETRON 4 MG/2 ML VIAL IVPUSH ONE (15:29)
--- NOTE | 2017-06-25 15:31 | PDOC ---
History of Present Illness - General Chief Complaint: Pain Stated Complaint: ABD PAIN, NAUSEA Time Seen by Provider: 06/25/17 15:21 History Source: Patient - History of Present Illness Initial Comments: 06/25/17 15:31 42 y.o. female with a PMH of Endometriosis (s/p hysterectomy), PCOS, SVT (s/p ablation) presents at the behest of Dr. العراقي for elective cholecystectomy. Patient was evaluated by GI earlier this week following evaluation in our ED last week for RUQ pain. At the time CT scan showed cholelithiasis w/o acute cholecystitis + nephrolithiasis. As patient's pain persisted she was evaluated by GI who referred her to a surgeon when patient's pain persisted. Patient presents with 06-02-17 CT scan (obtained by her PMD Dr. Savage) showing calcified gallstone and HIDA scan (06/20/17) showing GB ejection fraction of 2% prompting her cholecystectomy. Allergy: Propofol Surgical: Cardiac Ablation, Hysterectomy, C/S x3 Social: denies cigarettes, 2-3 alcoholic drinks monthly, denies recreational drugs PMD: Dr. Savage 06/25/17 15:37 Past History - Past Medical History Allergies/Adverse Reactions: Allergies Allergy/AdvReac Type Severity Reaction Status Date / Time propofol [From Diprivan] AdvReac Severe Verified 06/25/17 13:45 Home Medications: Ambulatory Orders Metoprolol Succinate [Toprol Xl -] 25 mg PO DAILY 12/10/16 Anemia: No Asthma: No Cancer: Yes (LEFT BREAST 2008) Cardiac Disorders: Yes (SVT-INTERNAL FLUE BLOWER) CVA: No COPD: No CHF: No DVT: No Dementia: No Diabetes: No GI Disorders: No Disorders: No HTN: No Hypercholesterolemia: No Liver Disease: No Seizures: Yes (INVOLUNTARY MOVEMENT FROM PROPOFOL) Thyroid Disease: Yes (THYROID NODULES) - Surgical History Cardiac Surgery: Yes (CARDIAC ABLATION 2004) - Suicide/Smoking/Psychosocial Hx Smoking History: Never smoked Have you smoked in the past 12 months: No Information on smoking cessation initiated: No Hx Alcohol Use: No Drug/Substance Use Hx: No Substance Use Type: None Hx Substance Use Treatment: No Review of Systems - Review of Systems Constitutional: Yes: Chills. No: Fever HEENTM: No: Recent change in vision Respiratory: No: Cough, Shortness of Breath Cardiac (ROS): No: Chest Pain, Lightheadedness, Palpitations, Syncope ABD/GI: Yes: Nausea, Abdominal cramping, Other. No: Constipated, Diarrhea, Vomiting : No: Burning, Dysuria *Physical Exam - Vital Signs Last Vital Signs Temp Pulse Resp BP Pulse Ox 98.1 F 105 H 18 114/75 100 06/25/17 13:43 06/25/17 13:43 06/25/17 13:43 06/25/17 13:43 06/25/17 13:43 - Physical Exam Comments: 06/25/17 15:39 GENERAL: Awake, alert, and fully oriented, in no acute distress HEAD: No signs of trauma EYES: PERRLA, EOMI, sclera anicteric, conjunctiva clear ENT: Auricles normal inspection, hearing grossly normal, nares patent, oropharynx clear without exudates. Moist mucosa NECK: Nontender, no stepoffs, Normal ROM, supple, no lymphadenopathy, JVD, or masses LUNGS: Breath sounds equal, clear to auscultation bilaterally. No wheezes, and no crackles HEART: Regular rate and rhythm, normal S1 and S2, no murmurs, rubs or gallops ABDOMEN: (+) Gleason's sign; Soft, nontender, normoactive bowel sounds. No guarding, no rebound. No masses EXTREMITIES: Normal range of motion, no edema. No clubbing or cyanosis. No cords, erythema, or tenderness NEUROLOGICAL: Cranial nerves II through XII intact. 5/5 strength and sensation in all extremities, Normal speech, normal gait, normal cerebellar function SKIN: Warm, Dry, normal turgor, no rashes or lesions noted. ED Treatment Course - LABORATORY CBC & Chemistry Diagram: 06/25/17 16:13 06/25/17 16:13 - RADIOLOGY Radiology Studies Ordered: Category Date Time Status CHEST PA & LAT [RAD] Stat Radiology 06/25/17 15:29 Ordered Medical Decision Making - Medical Decision Making 06/25/17 15:41 42 year old afebrile non-toxic appearing female with [facility] PMD ordered CT scan showing cholelithiasis and HIDA scan showing decreased GB fraction presents for elective cholecystectomy. Physical exam significant for (+) Gleason's Will obtain basic labs, bedside U/S and discuss case with PMD (Dr. Savage) and surgeon (Dr. العراقي). In addition lactic acid and lipase to r/o acute abdomen. 06/25/17 17:12 Case d/w Dr. Savage, patient's PMD, requests Dr. Lafleur (Cardiology) and Celia (GI). Will admit inpatient. EKG shows NRS HR 89, normal intervals, no deviations, no BILLY/STD 06/25/17 18:17 Lipase 892 - CT scan provided by patient dated 06/12/17 notes no pancreatic abnormalities; will hydrate patient; 06/25/17 18:24 Lactic Acid 3.0, Lipase 842. Will hydrate patient 06/25/17 18:53 Case d/w Dr. Savage - agrees with POC 06/25/17 18:58 Case d/w Dr. العراقي (General Surgery) - requests amylase. Will plan for operation pending result. 06/25/17 19:27 Amylase pending Pain control with Toradol Repeat Lactic Acid s/p IV NS Patient signed out to Dr. Short (Resident) and Dr. Méndez (Attending). *DC/Admit/Observation/Transfer Diagnosis at time of Disposition: Pancreatitis - Referrals - Patient Instructions - Post Discharge Activity
[2017-06-25] MEDS ORDERED: ONDANSETRON 4 MG/2 ML VIAL ONE (15:41)
[2017-06-25] MEDS ORDERED: SODIUM CHLORIDE 0.9% 1000 ML INFUS.BAG IV ONE (16:07)
[2017-06-25] MEDS ORDERED: ACETAMINOPHEN 1000 MG/100 ML VIAL (NON FORMULARY) IVPB ONE (16:13)
--- NOTE | 2017-06-25 16:23 | PDOC ---
Attending Attestation - Resident Resident Name: Belinda Chaudhary - ED Attending Attestation I have performed the following: I have examined & evaluated the patient, The case was reviewed & discussed with the resident, I agree w/resident's findings & plan, Exceptions are as noted <Lissette Carvajal - Last Filed: 06/25/17 18:22> - HPI HPI: 06/25/17 16:25 The patient is a 42 year old female, with a significant past medical history of recent cholelithiasis, SVT(s/p ablation), PCOS, and endometriosis(s/p hysterectomy), who presents to the emergency department sent by Surgeon Dr. العراقي preop cholecystectomy. Patient reports RUQ earlier this week, for which she was evaluated by GI. At the time, patient had a CT scan done which revealed cholelithiasis. Patient was referred to Dr. العراقي if pain persisted. Patient reports her pain radiates to her back. No nausea, vomiting, fever or chills. - Physicial Exam PE: 06/25/17 16:54 GENERAL: Awake, alert, and fully oriented, in no acute distress HEAD: No signs of trauma EYES: PERRLA, EOMI, sclera anicteric, conjunctiva clear ENT: Auricles normal inspection, hearing grossly normal, nares patent. Moist mucosa NECK: Normal ROM, supple, no lymphadenopathy, JVD, or masses LUNGS: Breath sounds equal, clear to auscultation bilaterally. No wheezes, and no crackles HEART: Regular rate and rhythm, normal S1 and S2, no murmurs, rubs or gallops ABDOMEN: RUQ tenderness to palpation without guarding or rebound. Soft, normoactive bowel sounds. No masses EXTREMITIES: Normal range of motion, no edema. No clubbing or cyanosis. No cords, erythema, or tenderness. DP/PT pulses 2+ and symmetric. Warm and well perfused. NEUROLOGICAL: Moves all extremities. Normal speech, normal gait SKIN: Warm, Dry, normal turgor, no rashes or lesions noted. - Medical Decision Making 06/25/17 16:25 Documentation prepared by Richard Cloud, acting as medical assistant secretary for Lissette Carvajal MD. 06/25/17 18:[address] العراقي at 18:57. <Richard Cloud - Last Filed: 06/25/17 18:58> Heart Score/ECG Review #1 General ECG Interpretation: Sinus Rhythm, Normal Rate (89), Normal Intervals, No acute ischemic changes <Lissette Carvajal - Last Filed: 06/25/17 18:22>
[2017-06-25 16:37] LABS: BASO % 0.8 % (0-2.0); EOS % 0.8 % (0-4.5); HEMOGLOBIN 14.7 GM/dL (10.7-15.3); LYMPH % 18.3 % (8-40); MCH 27.9 pg (25.7-33.7); MCHC 33.5 g/dl (32.0-36.0); MEAN CELL VOLUME 83.2 fl (80-96); MEAN PLT VOLUME 8.9 fl (7.5-11.1); NEUT % 76.1 % (42.8-82.8); PLATELET COUNT 321 K/MM3 (134-434); RBC 5.29 M/mm3 (3.60-5.2); RDW 15.1 % (11.6-15.6); WHITE BLOOD COUNT 9.3 K/mm3 (4.0-10.0)
[2017-06-25] MEDS ORDERED: ACETAMINOPHEN INJECTION 100 ML IVPB ONE (16:44)
[2017-06-25 16:58] LABS: ALBUMIN 4.3 g/dl (3.4-5.0); ANION GAP 7 (8-16); BILIRUBIN,TOTAL 0.4 mg/dL (0.2-1.0); BLOOD UREA NITROGEN 13 mg/dL (7-18); CALCIUM 9.7 mg/dL (8.5-10.1); CHLORIDE 104 mmol/L (98-107); CO2 26 mmol/L (21-32); CREATININE 0.7 mg/dL (0.55-1.02); GLUCOSE,RANDOM 84 mg/dL (74-106); POTASSIUM 4.5 mmol/L (3.5-5.1); SGOT/AST 19 U/L (15-37); SGPT/ALT 34 U/L (12-78); SODIUM 137 mmol/L (136-145); TOT PROT 8.3 g/dl (6.4-8.2)
[2017-06-25 16:59] LABS: ALK PHOS 93 U/L (45-117)
[2017-06-25] MEDS ORDERED: SODIUM CHLORIDE 0.9% 500 ML INFUS.BAG IV ONE ×2 (18:17→18:29)
[2017-06-25] MEDS ORDERED: KETOROLAC TROMETHAMINE 15 MG/ML VIAL IVPUSH ONE (18:20)
[2017-06-25] MEDS ORDERED: FAMOTIDINE IV 20 MG/12 ML VIAL IVPUSH ONE (18:22)
--- NOTE | 2017-06-25 18:31 | PN ---
Progress Note (short form) - Note Progress Note: Chief Complaint: Events noted notes reviewed. Abdominal discomfort related to cholelithiasis for cholecystectomy, pre-procedure cardiovascular evaluation History of Present Illness: Seen and examined. Full consult dictated Medications: Toprol-XL 25 mg once a day. Review of Systems - Review of Systems Constitutional: denies: Chills, Fever Cardiovascular: As noted above Respiratory: denies: Cough or sputum production Gastrointestinal: reports: Abdominal Pain, denies nausea, vomiting, diarrhea or constipation Genitourinary: denies: Dysuria Musculoskeletal: denies: Joint Pain Neurological: No symptoms reported Vital Signs: Last Vital Signs Temp Pulse Resp BP Pulse Ox 98.1 F 105 H 18 114/75 100 06/25/17 13:43 06/25/17 13:43 06/25/17 13:43 06/25/17 13:43 06/25/17 13:43 Intake & Output 06/22/17 06/23/17 06/24/17 06/25/17 23:59 23:59 23:59 23:59 Weight 182 lb HEENT: REN[place], EOMI Unicteric Sclera Neck: Supple Negative JVD No Bruit Cardiovascular: Pulse regular rate and rhythm no murmurs, clicks or gallops Respiratory: Clear to auscultation and percussion Gastrointestinal: Soft Benign Normal Bowel Sounds Ext: No Edema Labs: CBC, BMP 06/25/17 16:13 06/25/17 16:13 Hepatic Panel Total Bilirubin 0.4 mg/dL (0.2-1.0) D 06/25/17 16:13 AST 19 U/L (15-37) 06/25/17 16:13 ALT 34 U/L (12-78) 06/25/17 16:13 Alkaline Phosphatase 93 U/L (45-117) 06/25/17 16:13 Albumin 4.3 g/dl (3.4-5.0) 06/25/17 16:13 Assessment/Plan ASSESSMENT: 1. Pre-procedure cardiovascular evaluation prior to proceeding with laparoscopic cholecystectomy for management of symptomatic cholelithiasis in a patient with known history of supraventricular tachycardia status post radiofrequency ablation of an accessory pathway 2. History of recurrent palpitations with no clear evidence of recurrent supraventricular tachycardia, possible inappropriate sinus tachycardia currently on beta yoni therapy (post [employer]'s LINQ implant, loop recorder , declined repeat EP study) 3. History of syncope, neurocardiogenic syncope unclear if vasodepressor verses cardioinhibitory, unlikely to be vasovagal syncope 4. History of PFO, patent foramen ovale on daily Ecotrin therapy 5. History of post Robotic hysterectomy for management of endometriosis 6. History of post operative myoclonic jerks most likely related to anesthesia 7. History of migraine headaches PLAN: 1. Patient was advised that there are no absolute contraindications in proceeding with the above planned surgical procedure considering that there is no clinical evidence of acute coronary syndrome and/or decompensated congestive heart failure and/or malignant sustained ventricular arrhythmia 2. Continue Toprol-XL and therapy to be administered in the morning of the procedure with a sip of water 3. Ecotrin therapy resumption is recommended post-procedure once cleared surgically 4. Patient is to followup in our office post discharge for further management Rhina Syed MD
[2017-06-25] MEDS ORDERED: KETOROLAC TROMETHAMINE 15 MG/ML VIAL ONE (18:56)
[2017-06-25] MEDS ORDERED: FAMOTIDINE 20 MG/50 ML IVPB 20 MG/50 ML MG IVPB ONE (18:57)
[2017-06-25] MEDS ORDERED: PIPERACIL/TAZOB 3.375 GM 3.375 GM/50 ML PREMIX IVPB ONE (19:26)
[2017-06-25] MEDS ORDERED: ONDANSETRON 4 MG/2 ML VIAL IVPUSH PRN (19:49)
--- NOTE | 2017-06-25 19:49 | HP ---
Admitting History and Physical - Admission Chief Complaint: ruq pain History of Present Illness: 42 y.o. female with a PMH s/p breast Ca / Endometriosis (s/p hysterectomy) / PCOS / SVT (s/p ablation) / with episodes of syncope post ablation now with loop recorder implanted /sent to ER with over one week hx of RUQ pain - intermittent , unclear if related to meals. Outpatient work up significant for cholecystits, she was treated with antibiotics and low fat diet.She was seen by Dr Yang earlier today with persistent RUQ pain and referred to ER for admission and surgical evaluation. Patient presents with 06-02-17 CT scan (obtained by her PMD Dr. Savage) showing calcified gallstone and HIDA scan (06/20/17) showing GB ejection fraction of 2% prompting her referral to ER with recommendations for cholecystectomy. Surgery and cardiology notified of patient referral to ER. Allergy: Propofol Surgical: Cardiac Ablation, Hysterectomy, C/S x3 Social: denies cigarettes, 2-3 alcoholic drinks monthly, denies recreational drugs PMD: Dr. Savage History Source: Patient, Medical Record Limitations to Obtaining History: No Limitations - Past Medical History INSPECTOR SHELLS: Yes: Syncope Cardiovascular: Yes: Other (cardiac arrythmia / SVT) Gastrointestinal: Yes: Constipation Hepatobiliary: Yes: Cholecystitis Reproductive: Yes: Endometriosis, Polycystic Ovary Syndrome ...LMP: 10/27/16 ...: No Heme/Onc: Yes: Cancer (breast) - Past Surgical History Past Surgical History: Yes: Hysterectomy - Smoking History Smoking history: Never smoked Have you smoked in the past 12 months: No - Alcohol/Substance Use Hx Alcohol Use: No - Social History Usual Living Arrangement: Yes: With Spouse, With Child ADL: Independent History of Recent Travel: No Home Medications - Allergies Allergies/Adverse Reactions: Allergies Allergy/AdvReac Type Severity Reaction Status Date / Time propofol [From Diprivan] AdvReac Severe Verified 06/25/17 13:45 - Home Medications Home Medications: Ambulatory Orders Metoprolol Succinate [Toprol Xl -] 25 mg PO DAILY 12/10/16 Review of Systems - Review of Systems Constitutional: reports: Unintentional Wgt. Loss Eyes: reports: No Symptoms HENT: reports: No Symptoms Neck: reports: No Symptoms Cardiovascular: reports: No Symptoms. denies: Chest Pain, Palpitations Respiratory: reports: No Symptoms Gastrointestinal: reports: Abdominal Pain, Bloating, Indigestion, Nausea Genitourinary: reports: No Symptoms Breasts: reports: No Symptoms Reported Musculoskeletal: reports: No Symptoms Integumentary: reports: No Symptoms Neurological: reports: No Symptoms Endocrine: reports: No Symptoms Hematology/Lymphatic: reports: No Symptoms Psychiatric: reports: No Symptoms Physical Examination Vital Signs: Vital Signs Temperature 98.1 F 06/25/17 13:43 Pulse Rate 105 H 06/25/17 13:43 Respiratory Rate 18 06/25/17 13:43 Blood Pressure 114/75 06/25/17 13:43 O2 Sat by Pulse Oximetry (%) 100 06/25/17 13:43 Constitutional: Yes: Well Nourished, No Distress, Obese Eyes: Yes: Conjunctiva Clear, EOM Intact HENT: Yes: Atraumatic, Normocephalic Neck: Yes: Supple, Trachea Midline Cardiovascular: Yes: Regular Rate and Rhythm Respiratory: Yes: Regular, CTA Bilaterally Gastrointestinal: Yes: Normal Bowel Sounds, Tenderness (RUQ). No: Tenderness, Rebound ...Rectal Exam: Yes: Deferred Renal/: Yes: WNL Breast(s): Yes: WNL Musculoskeletal: Yes: WNL Extremities: Yes: WNL Edema: No Peripheral Pulses WNL: Yes Integumentary: Yes: WNL Neurological: Yes: WNL, Alert, Oriented ...Motor Strength: WNL Psychiatric: Yes: Alert, Oriented Labs: CBC, BMP 06/25/17 16:13 06/25/17 16:13 lipase 890 / LFT all NL / Lactic acid 3 Problem List - Problems (1) Pancreatitis due to biliary obstruction Assessment/Plan: inc lipase no Fever / WBC elevation / keep NPO except for meds IV fluids 150cc/hr repeat lipase tonight if continues elevated will increase fluids tonight trend lipase and lactic acid if improved will clear for OR in am Code(s): K85.90 - ACUTE PANCREATITIS WITHOUT NECROSIS OR INFECTION, UNSP; K83.1 - OBSTRUCTION OF BILE DUCT (2) Cholecystitis, acute with cholelithiasis Assessment/Plan: 1-2 week hx of persistent RUQ pain not tolerating PO + N/V out patient work up c/w gallstones refered to GI and Surgery Code(s): K80.00 - CALCULUS OF GALLBLADDER W ACUTE CHOLECYST W/O OBSTRUCTION (3) Abdominal pain Assessment/Plan: 2/2 to # 1 and #2 Code(s): R10.9 - UNSPECIFIED ABDOMINAL PAIN (4) History of radiofrequency ablation procedure for cardiac arrhythmia Assessment/Plan: has continued with arrhythmia now with loop recorder in place daily toprol 25 mg caren need to take am of surgery Code(s): Z98.890 - OTHER SPECIFIED POSTPROCEDURAL STATES (5) Nausea Code(s): R11.0 - NAUSEA (6) Paroxysmal supraventricular tachycardia Assessment/Plan: toprol XL 25 mg/day Code(s): I47.1 - SUPRAVENTRICULAR TACHYCARDIA (7) Status post placement of implantable loop recorder Code(s): Z95.818 - PRESENCE OF OTHER CARDIAC IMPLANTS AND GRAFTS (8) Intermittent palpitations Code(s): R00.2 - PALPITATIONS (9) Patent foramen ovale Code(s): Q21.1 - ATRIAL SEPTAL DEFECT (10) Obesity (BMI 30.0-34.9) Code(s): E66.9 - OBESITY, UNSPECIFIED (11) History of robot-assisted laparoscopic hysterectomy Code(s): Z90.710 - ACQUIRED ABSENCE OF BOTH CERVIX AND UTERUS
[2017-06-25] MEDS ORDERED: PIPERACILLIN/TAZOB 3.375 GM 3.375 GM/50 ML BAG IVPB ONE (19:55)
[2017-06-25] MEDS ORDERED: KETOROLAC TROMETHAMINE 15 MG/ML VIAL IVPUSH PRN (20:05)
[2017-06-25] MEDS: SODIUM CHLORIDE 1,000 ML IV SCH (20:37)
[2017-06-25 21:30] LABS: URINE APPEARANCE CLEAR; URINE BILIRUBIN NEGATIVE (<2.0 mg/dL); URINE BLOOD 1+ (NEGATIVE); URINE COLOR STRAW; URINE GLUCOSE (UA) NEGATIVE (NEGATIVE); URINE KETONE TRACE (NEGATIVE); URINE LEUK ESTERASE NEGATIVE (NEGATIVE); URINE NITRITE NEGATIVE (NEGATIVE); URINE PROTEIN NEGATIVE (NEGATIVE); URINE UROBILINOGEN NEGATIVE mg/dL (0.2-1.0)
[2017-06-25 21:36] LABS: EPI CELLS RARE /HPF (FEW); URINE BACTERIA RARE /hpf (NONE SEEN); URINE MUCUS RARE
[2017-06-25] MEDS ORDERED: LORazepam 2 MG/ML SDV VIAL IVPUSH ONE (22:49)
[2017-06-25] MEDS ORDERED: metoPROLOL SUCCINATE 25 MG TAB.SR.24H (FP) PO ONE (23:07)
[2017-06-25] MEDS ORDERED: MIDAZOLAM HCL 5 MG/1 ML Single Dose Vial IVPUSH PRN (23:08)
[2017-06-25] MEDS: PANTOPRAZOLE SODIUM 40 MG VIAL IVPUSH SCH (23:22)
[2017-06-26] MEDS: SODIUM CHLORIDE 1,000 ML IV SCH (02:00)
[2017-06-26 08:00] LABS: HEMATOCRIT 38.4 % (32.4-45.2); HEMOGLOBIN 12.9 GM/dL (10.7-15.3); MCHC 33.6 g/dl (32.0-36.0); MEAN CELL VOLUME 83.4 fl (80-96); MEAN PLT VOLUME 8.7 fl (7.5-11.1); PLATELET COUNT 276 K/MM3 (134-434); RBC 4.61 M/mm3 (3.60-5.2); RDW 15.7 % (11.6-15.6); WHITE BLOOD COUNT 6.3 K/mm3 (4.0-10.0)
[2017-06-26 08:28] LABS: ALBUMIN 3.5 g/dl (3.4-5.0); ANION GAP 10 (8-16); CALCIUM 8.3 mg/dL (8.5-10.1); CHLORIDE 110 mmol/L (98-107); CO2 23 mmol/L (21-32); GLUCOSE,RANDOM 88 mg/dL (74-106); POTASSIUM 4.1 mmol/L (3.5-5.1); SGOT/AST 18 U/L (15-37); SODIUM 143 mmol/L (136-145)
[2017-06-26 08:33] LABS: ALK PHOS 78 U/L (45-117); BILIRUBIN,TOTAL 0.7 mg/dL (0.2-1.0); BLOOD UREA NITROGEN 10 mg/dL (7-18); CREATININE 0.7 mg/dL (0.55-1.02); SGPT/ALT 29 U/L (12-78); TOT PROT 6.9 g/dl (6.4-8.2)
[2017-06-26] MEDS: PANTOPRAZOLE SODIUM 40 MG VIAL IVPUSH SCH ×2 (09:41→21:02)
[2017-06-26] MEDS ORDERED: metoPROLOL SUCCINATE 25 MG TAB.SR.24H (FP) PO SCH (10:00)
[2017-06-26] MEDS ORDERED: MIDAZOLAM HCL 2 MG/2 ML SINGLE DOSE VIAL ONE (10:29)
[2017-06-26] MEDS ORDERED: ROCURONIUM BROMIDE 50 MG/5 ML VIAL ONE (10:47)
[2017-06-26] MEDS ORDERED: LIDOCAINE HCL/PF 2% SDV 5ML VIAL ONE (10:47)
[2017-06-26] MEDS ORDERED: ETOMIDATE 20 MG/10 ML AMPUL IVPUSH ONE (10:47)
[2017-06-26] MEDS ORDERED: ERTAPENEM SODIUM 1 GM VIAL ONE (10:48)
[2017-06-26] MEDS ORDERED: ERTAPENEM SODIUM 1 GM VIAL IVPB ONE (10:50)
[2017-06-26] MEDS ORDERED: DEXAMETHASONE SOD PHOSPHATE 4 MG/1 ML VIAL ONE (11:01)
[2017-06-26] MEDS ORDERED: NEOSTIGMINE METHYLSULFATE 0.5 MG/ML - 10 ML MDV ONE (11:39)
[2017-06-26] MEDS ORDERED: GLYCOPYRROLATE 0.2 MG/1 ML VIAL ONE (11:39)
--- NOTE | 2017-06-26 11:40 | EKG ---
Test Reason : Blood Pressure : / mmHG Vent. Rate : 089 BPM Atrial Rate : 089 BPM P-R Int : 112 ms QRS Dur : 078 ms QT Int : 362 ms P-R-T Axes : -13 020 020 degrees QTc Int : 440 ms NORMAL SINUS RHYTHM NONSPECIFIC ST ABNORMALITY ABNORMAL ECG WHEN COMPARED WITH ECG OF 11-JUN-2017 21:26, SINUS RHYTHM HAS REPLACED JUNCTIONAL RHYTHM Confirmed by NY PEREZ MD ([id number]) on 06/26/2017 11:40:05 AM Referred By: Confirmed By:NY PEREZ MD
--- NOTE | 2017-06-26 11:49 | CONS ---
DATE OF CONSULTATION: 06/25/2017 REFERRING PHYSICIANS: Dr. Yang and Dr. Savage REASON FOR REFERRAL: Abdominal pain, gallstones. BRIEF HISTORY: This is a 42-year-old female whose history dates back approximately a week ago when the patient developed right-sided upper abdominal pain. She was seen in the emergency room at that time and evaluated. She was noted to have cholelithiasis and it was thought that the patient had biliary disease and an attack of her gallbladder. She was treated medically and placed on p.o. antibiotics. Over the ensuing week the patient failed to improve significantly and still had persistent abdominal pain at times. Patient also complains of severe nausea. She re- presented to the emergency room yesterday. I saw the patient yesterday in the ER. Upon yesterday's questionings, patient states she still had severe nausea at times and had pain in the upper abdomen, mostly to the right and towards her back. She felt bloated. She has passed gas, but her bowel movements have decreased. She has not been able to eat well. She denies fever, chills or sweats. She denies a change in stool color and urine color. She underwent routine blood work. The routine blood work of LFTs was essentially normal as well as the . She had an elevated lipase in the 800 range; last week the lipase was 280s and was within normal limits for [facility]. Due to the elevation of the lipase, I had asked the emergency room physician to add on an amylase. The amylase that was eventually drawn showed it to be normal at 71. Repeat lipase is also down into the normal range as well. PAST MEDICAL HISTORY: Significant for cardiac disease. Patient had a history of SVT, status post ablation over close to 10 years ago. She has an internal loop recorder. She has a history of breast cancer. PAST SURGICAL HISTORY: She has had a hysterectomy, section. MEDICATIONS: Refer to chart. ALLERGIES: PROPOFOL. SOCIAL HISTORY: Patient does not smoke nor drink. PHYSICAL EXAMINATION: HEENT: There is no icterus. Abdomen: Mildly obese, soft, mildly distended. There is minimal tenderness in the upper abdomen without true guarding or rebound. IMPRESSION/PLAN: Symptomatic biliary disease, biliary pancreatitis, history of what appears to be biliary colic: This is a 42-year-old female with a 1-week history of progressive abdominal pain. I suspect last week the patient had an event of passing some small gallstones which triggered a mild pancreatitis. Clearly at this point she is not acutely ill from her pancreatitis and based on her blood work and physical examination I think it is safe to proceed with a laparoscopic cholecystectomy. Patient will be scheduled for such. Prior to surgical intervention, patient will require cardiac clearance due to her significant cardiac history. The indications, alternatives and complications of the procedure were discussed. Questions answered. Will plan to obtain written consent for surgery. NORM FRIAS M.D. [id number] cc: MD Chaparrita Patton MD MTDD
[2017-06-26] MEDS ORDERED: morphine CARPU-JECT 4 MG/1 ML DISP.SYRIN IVPB PRN (12:01)
[2017-06-26] MEDS ORDERED: oxyCODONE HCL 5 MG TABLET PO PRN (12:01)
--- NOTE | 2017-06-26 12:05 | OP ---
Operative Note - Note: Operative Date: 06/26/17 Pre-Operative Diagnosis: pancreatitis, cholelithiasis Operation: laparoscopic cholecystectomy, lavage Findings: pale gb, generous cystic duct Post-Operative Diagnosis: Same as Pre-op Surgeon: Joaquín العراقي Maintenance Shop Laborer: Malcom Pruett Anesthesiologist/STORY ANALYST: Sergei Hill Specimens Removed: gb Estimated Blood Loss (mls): 10 Operative Report Dictated: Yes
[2017-06-26] MEDS ORDERED: PROMETHAZINE HCL 25 MG/1 ML VIAL IVPUSH PRN (12:07)
[2017-06-26] MEDS ORDERED: ONDANSETRON 4 MG/2 ML VIAL IVPUSH PRN ×2 (12:07→12:34)
[2017-06-26] MEDS ORDERED: LACTATED RINGERS SOLUTION 1,000 ML IV SCH (12:15)
[2017-06-26] MEDS ORDERED: SODIUM CHLORIDE 1,000 ML IV SCH (12:34)
[2017-06-26] MEDS ORDERED: KETOROLAC TROMETHAMINE 15 MG/ML VIAL IVPUSH PRN (12:34)
[2017-06-26] MEDS ORDERED: MIDAZOLAM HCL 5 MG/1 ML Single Dose Vial IVPUSH PRN (12:34)
--- NOTE | 2017-06-26 13:25 | OP ---
DATE OF OPERATION: 06/26/2017 PREOPERATIVE DIAGNOSES: Chronically incarcerated umbilical hernia, biliary pancreatitis, cholelithiasis, chronic cholecystitis. POSTOPERATIVE DIAGNOSES: Chronically incarcerated umbilical hernia, biliary pancreatitis, cholelithiasis, chronic cholecystitis. PROCEDURE: Laparoscopic cholecystectomy, peritoneal lavage. SURGEON: Joaquín العراقي MD RESIDENTIAL MORTGAGE UNDERWRITER: Malcom Pruett DO ANESTHESIA: Keily Hill MD (general). ESTIMATED BLOOD LOSS: Minimal. SPECIMEN: Gallbladder. INDICATION FOR PROCEDURE: This is a 42-year-old female who has a 1-week history of progressively worsening abdominal pain. Labs suggestive of slowly resolving biliary pancreatitis. She is now here today for a laparoscopic cholecystectomy. DESCRIPTION OF PROCEDURE: Patient identified, appropriately positioned on the operating room table. After placement of general anesthesia, the abdomen was prepped and draped in the usual sterile fashion with ChloraPrep. An infraumbilical incision was made, deepened to the subcutaneous tissue. The fascia was divided sharply. The peritoneum incised under direct vision. An 11-mm port placed. The remaining ports placed under direct vision as well. The gallbladder identified in the right upper quadrant. There was omentum plastered to the dome and body of the gallbladder. The omentum was bluntly. The gallbladder had changes consistent with chronic cholecystitis. The gallbladder reflected over the dome of the liver in standard fashion, going from lateral to medial. The neck and infundibulum of the gallbladder identified, followed by the cystic duct. The cystic duct circumferentially isolated, clipped, and then divided. The patient's cystic artery was identified more medially and posteriorly in its usual position. This was circumferentially isolated, clipped, and then divided. The gallbladder itself was then taken off the liver bed, and in doing so, there was a long posterior branch artery, most likely off the right hepatic feeding the mid-aspect of the right lobe of the liver. This branch was teased off of the gallbladder. There were 2 small branches that fed the back wall of the gallbladder. These branches were clipped and then divided. That posterior branch feeding the liver was left intact and entering back into the liver. The gallbladder itself was completely removed from the liver bed. The operative field irrigated, the operative field noted to be hemostatic. The gallbladder was brought out through the umbilical port site. The ports were removed. Port sites were noted to be hemostatic. The fascia at the umbilical port site was reapproximated with interrupted 0 Vicryl suture. Her chronically incarcerated ventral incisional hernia was not addressed at this time. At the conclusion of this case, sponge and needle counts were correct. ATTESTATION: A brief operative note handwritten on the preprinted form. [facility] queried prior to giving any narcotics. Cindy MORALES [id number] cc: MD Chaparrita Patton MD
--- NOTE | 2017-06-26 13:38 | PN ---
Progress Note (short form) - Note Progress Note: 42 y/o female found lyng in bed. Reports constipation and abdominal pain continues. Lipase level decreased, normal now. Awaiting surgery for cholecystectomy. Vital Signs Period Temp Pulse Resp BP Sys/Miller Pulse Ox Last 24 Hr 97.6 F-98.5 F 65-105 15-18 92-128/48-78 100-100 CBC, BMP 06/26/17 06:00 06/26/17 06:00 HEENT-Normocephalic Neck-Supple Lungs-CTAB Heart- S1/S2 Abd- Soft, distended, tender to palpation Ext- No LE edema Active Medications Fentanyl (Sublimaze Injection -) 50 mcg IVPUSH [id number] PRN PRN Reason: PAIN-PACU ORDER X 4 DOSES ONLY Stop: 06/26/17 16:00 Lactated Ringer's (Lactated Ringers Solution) 1,000 mls @ 125 mls/hr IV ASDIR STEFFANIE Sodium Chloride (Normal Saline -) 1,000 mls @ 150 mls/hr IV ASDIR STEFFANIE Ketorolac Tromethamine (Toradol Injection -) 15 mg IVPUSH Q6H PRN PRN Reason: PAIN LEVEL 4 - 6 Stop: 06/30/17 20:04 Metoprolol Succinate (Toprol Xl -) 25 mg PO DAILY STEFFANIE Midazolam HCl (Versed -) 5 mg IVPUSH ONCE PRN PRN Reason: generalized seizure Stop: 06/27/17 23:07 Morphine Sulfate (Morphine Injection -) 4 mg IVPB Q3H PRN PRN Reason: PAIN LEVEL 7 - 10 Ondansetron HCl (Zofran Injection) 4 mg IVPUSH Q6H PRN PRN Reason: NAUSEA AND/OR VOMITING Stop: 06/27/17 12:06 Ondansetron HCl (Zofran Injection) 4 mg IVPUSH Q6H PRN PRN Reason: NAUSEA Oxycodone HCl (Roxicodone -) 7.5 mg PO Q4H PRN PRN Reason: PAIN LEVEL 4 - 6 Pantoprazole Sodium (Protonix Iv) 40 mg IVPUSH BID STEFFANIE Promethazine HCl (Phenergan Injection -) 12.5 mg IVPUSH Q6H PRN PRN Reason: NAUSEA-FOR RESCUE AFTER 15 MIN Stop: 06/27/17 01:30 #Pancreatitis Lipase normal today # Abdominal Pain/ Cholecystitis Continue Pantoprazole Awaiting Cholecystectomy Problem List - Problems (1) Cholecystitis, acute with cholelithiasis Code(s): K80.00 - CALCULUS OF GALLBLADDER W ACUTE CHOLECYST W/O OBSTRUCTION (2) Abdominal pain Code(s): R10.9 - UNSPECIFIED ABDOMINAL PAIN (3) History of radiofrequency ablation procedure for cardiac arrhythmia Code(s): Z98.890 - OTHER SPECIFIED POSTPROCEDURAL STATES (4) Nausea Code(s): R11.0 - NAUSEA (5) Paroxysmal supraventricular tachycardia Code(s): I47.1 - SUPRAVENTRICULAR TACHYCARDIA (6) Status post placement of implantable loop recorder Code(s): Z95.818 - PRESENCE OF OTHER CARDIAC IMPLANTS AND GRAFTS (7) Intermittent palpitations Code(s): R00.2 - PALPITATIONS (8) Patent foramen ovale Code(s): Q21.1 - ATRIAL SEPTAL DEFECT (9) Obesity (BMI 30.0-34.9) Code(s): E66.9 - OBESITY, UNSPECIFIED (10) History of robot-assisted laparoscopic hysterectomy Code(s): Z90.710 - ACQUIRED ABSENCE OF BOTH CERVIX AND UTERUS
[2017-06-26] MEDS ORDERED: ONDANSETRON 4 MG/2 ML VIAL ONE (13:58)
--- NOTE | 2017-06-26 14:43 | CON.GI ---
Consult Consult Specialty:: Gastroenterology Referred by:: Dr Savage - History of Present Illness History of Present Illness: 42 y/o female was doing well until 2 weeks ago when she developed progressive and persistent RUQ pain . She underwent HIDA scan with low EF. Working diagnosis is chronic cholecystitis. She was started empirically with antibiotics with no relief of her symptoms. She underwent cholecystectomy today. - Past Medical History [employer]LE DAT[employer] ARCHITECT: Yes: Syncope Cardio/Vascular: Yes: Other (cardiac arrythmia / SVT) Hepatobiliary: Yes: Cholecystitis ...LMP: 10/27/16 ...: No Additional Medical History: obesity - Past Surgical History Past Surgical History: Yes: Hysterectomy - Alcohol/Substance Use Hx Alcohol Use: No - Smoking History Smoking history: Never smoked Have you smoked in the past 12 months: No - Social History ADL: Independent History of Recent Travel: No Home Medications - Allergies Allergies/Adverse Reactions: Allergies Allergy/AdvReac Type Severity Reaction Status Date / Time propofol [From Diprivan] AdvReac Severe Verified 06/25/17 13:45 - Home Medications Home Medications: Ambulatory Orders Metoprolol Succinate [Toprol Xl -] 25 mg PO DAILY 12/10/16 Physical Exam-GI Vital Signs: Vital Signs Temperature 98.2 F 06/26/17 12:03 Pulse Rate 63 06/26/17 14:00 Respiratory Rate 14 06/26/17 14:00 Blood Pressure 101/59 06/26/17 14:00 O2 Sat by Pulse Oximetry (%) 100 06/26/17 14:00 Constitutional: Yes: Well Nourished Eyes: Yes: Conjunctiva Clear HENT: Yes: Atraumatic Neck: Yes: Supple Cardiovascular: Yes: Regular Rate and Rhythm Respiratory: Yes: CTA Bilaterally ...Palpate: Yes: Soft, Tenderness (--right upper quadrant pain). No: Firm/Rigid , Guarding, Hepatomegaly, Pulsatile Mass, Splenomegaly Labs: CBC, BMP 06/26/17 06:00 06/26/17 06:00 CBCD WBC 6.3 K/mm3 (4.0-10.0) D 06/26/17 06:00 RBC 4.61 M/mm3 (3.60-5.2) 06/26/17 06:00 Hgb 12.9 GM/dL (10.7-15.3) D 06/26/17 06:00 Hct 38.4 % (32.4-45.2) 06/26/17 06:00 MCV 83.4 fl (80-96) 06/26/17 06:00 MCHC 33.6 g/dl (32.0-36.0) 06/26/17 06:00 RDW 15.7 % (11.6-15.6) H 06/26/17 06:00 Plt Count 276 K/MM3 (134-434) 06/26/17 06:00 MPV 8.7 fl (7.5-11.1) 06/26/17 06:00 CMP Sodium 143 mmol/L (136-145) 06/26/17 06:00 Potassium 4.1 mmol/L (3.5-5.1) 06/26/17 06:00 Chloride 110 mmol/L (98-107) H 06/26/17 06:00 Carbon Dioxide 23 mmol/L (21-32) 06/26/17 06:00 Anion Gap 10 (8-16) 06/26/17 06:00 BUN 10 mg/dL (7-18) 06/26/17 06:00 Creatinine 0.7 mg/dL (0.55-1.02) 06/26/17 06:00 Creat Clearance w eGFR > 60 (>60) 06/26/17 06:00 Random Glucose 88 mg/dL (74-106) 06/26/17 06:00 Calcium 8.3 mg/dL (8.5-10.1) L 06/26/17 06:00 Total Bilirubin 0.7 mg/dL (0.2-1.0) D 06/26/17 06:00 AST 18 U/L (15-37) 06/26/17 06:00 ALT 29 U/L (12-78) 06/26/17 06:00 Alkaline Phosphatase 78 U/L (45-117) 06/26/17 06:00 Total Protein 6.9 g/dl (6.4-8.2) 06/26/17 06:00 Albumin 3.5 g/dl (3.4-5.0) 06/26/17 06:00 Problem List - Problems (1) Cholecystitis Assessment/Plan: R> s/p cholecystectomy advance diet as tolerated. Code(s): K81.9 - CHOLECYSTITIS, UNSPECIFIED
[2017-06-26] MEDS: METOCLOPRAMIDE HCL INJECTION 10 MG/2 ML VIAL IVPB SCH ×2 (15:32→22:09)
[2017-06-26] MEDS: ONDANSETRON 4 MG/2 ML VIAL IVPB SCH ×5 (15:32→21:10)
[2017-06-26] MEDS ORDERED: morphine SULFATE 4 MG/ML VIAL ONE (18:25)
--- NOTE | 2017-06-26 19:51 | PN ---
Progress Note (short form) - Note Progress Note: post op today Examined in bed/ educated with incentive spirometry tolerating liquids mildly distended abd Vital Signs Period Temp Pulse Resp BP Sys/Miller Pulse Ox Last 24 Hr 97.6 F-98.5 F 63-94 14-20 92-128/48-78 100-100 neck supple heart s1/s2 Lungs clear bilat abd distended / tender decreased BS / surgical sites clean ext no calf tenderness DVT boot in place no edema CBC,CMP WBC 6.3 K/mm3 (4.0-10.0) D 06/26/17 06:00 RBC 4.61 M/mm3 (3.60-5.2) 06/26/17 06:00 Hgb 12.9 GM/dL (10.7-15.3) D 06/26/17 06:00 Hct 38.4 % (32.4-45.2) 06/26/17 06:00 MCV 83.4 fl (80-96) 06/26/17 06:00 MCH 28.0 pg (25.7-33.7) 06/26/17 06:00 MCHC 33.6 g/dl (32.0-36.0) 06/26/17 06:00 RDW 15.7 % (11.6-15.6) H 06/26/17 06:00 Plt Count 276 K/MM3 (134-434) 06/26/17 06:00 MPV 8.7 fl (7.5-11.1) 06/26/17 06:00 Neutrophils % 76.1 % (42.8-82.8) 06/25/17 16:13 Lymphocytes % 18.3 % (8-40) D 06/25/17 16:13 Monocytes % 4.0 % (3.8-10.2) 06/25/17 16:13 Eosinophils % 0.8 % (0-4.5) 06/25/17 16:13 Basophils % 0.8 % (0-2.0) 06/25/17 16:13 Sodium 143 mmol/L (136-145) 06/26/17 06:00 Potassium 4.1 mmol/L (3.5-5.1) 06/26/17 06:00 Chloride 110 mmol/L (98-107) H 06/26/17 06:00 Carbon Dioxide 23 mmol/L (21-32) 06/26/17 06:00 Anion Gap 10 (8-16) 06/26/17 06:00 BUN 10 mg/dL (7-18) 06/26/17 06:00 Creatinine 0.7 mg/dL (0.55-1.02) 06/26/17 06:00 Creat Clearance w eGFR > 60 (>60) 06/26/17 06:00 Random Glucose 88 mg/dL (74-106) 06/26/17 06:00 Lactic Acid 3.0 mmol/L (0.0-2.0) H* 06/25/17 17:21 Calcium 8.3 mg/dL (8.5-10.1) L 06/26/17 06:00 Total Bilirubin 0.7 mg/dL (0.2-1.0) D 06/26/17 06:00 AST 18 U/L (15-37) 06/26/17 06:00 ALT 29 U/L (12-78) 06/26/17 06:00 Alkaline Phosphatase 78 U/L (45-117) 06/26/17 06:00 Total Protein 6.9 g/dl (6.4-8.2) 06/26/17 06:00 Albumin 3.5 g/dl (3.4-5.0) 06/26/17 06:00 Total Amylase 71 U/L (25-115) 06/25/17 22:49 Lipase 155 U/L (73-393) 06/26/17 06:00 Serum , Qual Negative 06/25/17 16:13 Active Medications Metoclopramide HCl (Reglan Injection -) 10 mg IVPB Q8H [facility] Last Admin: 06/26/17 15:32 Dose: 10 mg Metoprolol Succinate (Toprol Xl -) 25 mg PO DAILY [facility] Midazolam HCl (Versed -) 5 mg IVPUSH ONCE PRN PRN Reason: generalized seizure Stop: 06/27/17 23:07 Morphine Sulfate (Morphine Injection -) 4 mg IVPB Q3H PRN PRN Reason: PAIN LEVEL 7 - 10 Last Admin: 06/26/17 18:29 Dose: 4 mg Ondansetron HCl (Zofran Injection) 4 mg IVPB Q4H [facility] Stop: 06/27/17 02:53 Last Admin: 06/26/17 18:09 Dose: Not Given Ondansetron HCl (Zofran Injection) 4 mg IVPB Q4H PRN PRN Reason: NAUSEA Oxycodone HCl (Roxicodone -) 7.5 mg PO Q4H PRN PRN Reason: PAIN LEVEL 4 - 6 Pantoprazole Sodium (Protonix Iv) 40 mg IVPUSH BID STEFFANIE assmt / plan 1) s/p cholecytectomy 06/26/17 Gall stone pancreatitis 2/2 obstruction cholecytitis plan ambulate / pain meds as needed incentive spirometry liquid diet -- advance per surgery 2) cardiac arrhythmia loop recorder in place keep all electrolytes normalized continue Toprol xl 25 qday appreciate Cardiology follow up 3) constipation chronic / now made worse with use of narcotics for pain start colace and miralax -- to continue as out patient add Problem List - Problems (1) Pancreatitis due to biliary obstruction Code(s): K85.90 - ACUTE PANCREATITIS WITHOUT NECROSIS OR INFECTION, UNSP; K83.1 - OBSTRUCTION OF BILE DUCT (2) Cholecystitis, acute with cholelithiasis Code(s): K80.00 - CALCULUS OF GALLBLADDER W ACUTE CHOLECYST W/O OBSTRUCTION (3) Abdominal pain Code(s): R10.9 - UNSPECIFIED ABDOMINAL PAIN (4) History of radiofrequency ablation procedure for cardiac arrhythmia Code(s): Z98.890 - OTHER SPECIFIED POSTPROCEDURAL STATES (5) Nausea Code(s): R11.0 - NAUSEA (6) Paroxysmal supraventricular tachycardia Code(s): I47.1 - SUPRAVENTRICULAR TACHYCARDIA (7) Status post placement of implantable loop recorder Code(s): Z95.818 - PRESENCE OF OTHER CARDIAC IMPLANTS AND GRAFTS (8) Intermittent palpitations Code(s): R00.2 - PALPITATIONS (9) Patent foramen ovale Code(s): Q21.1 - ATRIAL SEPTAL DEFECT (10) Obesity (BMI 30.0-34.9) Code(s): E66.9 - OBESITY, UNSPECIFIED (11) History of robot-assisted laparoscopic hysterectomy Code(s): Z90.710 - ACQUIRED ABSENCE OF BOTH CERVIX AND UTERUS
[2017-06-26] MEDS ORDERED: SODIUM CHLORIDE 0.45% 1,000 ML IV SCH (20:30)
[2017-06-26] MEDS: POLYETHYLENE GLYCOL 3350 119 GM BTL PO SCH (21:01)
[2017-06-26] MEDS ORDERED: DOCUSATE SODIUM 100 MG CAPSULE (FP) PO SCH (22:00)
[2017-06-27] MEDS: ONDANSETRON 4 MG/2 ML VIAL IVPB SCH (02:57)
[2017-06-27] MEDS ORDERED: ONDANSETRON 4 MG/2 ML VIAL IVPB PRN (03:00)
[2017-06-27] MEDS ORDERED: morphine SULFATE 4 MG/ML VIAL IVPB PRN (05:23)
[2017-06-27] MEDS: METOCLOPRAMIDE HCL INJECTION 10 MG/2 ML VIAL IVPB SCH (06:05)
[2017-06-27 06:28] VITALS: TEMP 98.8
[2017-06-27 08:28] LABS: HEMATOCRIT 36.8 % (32.4-45.2); HEMOGLOBIN 12.1 GM/dL (10.7-15.3); MCH 27.4 pg (25.7-33.7); MCHC 32.8 g/dl (32.0-36.0); MEAN CELL VOLUME 83.6 fl (80-96); MEAN PLT VOLUME 8.8 fl (7.5-11.1); PLATELET COUNT 276 K/MM3 (134-434); RDW 15.3 % (11.6-15.6); WHITE BLOOD COUNT 11.1 K/mm3 (4.0-10.0)
[2017-06-27 08:41] LABS: CHLORIDE 110 mmol/L (98-107); SODIUM 140 mmol/L (136-145)
[2017-06-27 08:57] LABS: ALK PHOS 65 U/L (45-117); ANION GAP 9 (8-16); BILIRUBIN,TOTAL 0.5 mg/dL (0.2-1.0); BLOOD UREA NITROGEN 7 mg/dL (7-18); CALCIUM 8.2 mg/dL (8.5-10.1); CO2 21 mmol/L (21-32); CREATININE 0.6 mg/dL (0.55-1.02); GLUCOSE,RANDOM 86 mg/dL (74-106); SGOT/AST 24 U/L (15-37); SGPT/ALT 34 U/L (12-78)
--- NOTE | 2017-06-27 09:04 | PN ---
Progress Note (short form) - Note Progress Note: POD #1- s/p Laparoscopic cholecystectomy under general anesthesia. VSS. Pt. doing well, sitting comfortably in chair eating breakfast. No complaints. No apparent anesthetic complications noted. Continue current care.
[2017-06-27] MEDS: POLYETHYLENE GLYCOL 3350 119 GM BTL PO SCH (09:56)
[2017-06-27] MEDS: PANTOPRAZOLE SODIUM 40 MG VIAL IVPUSH SCH (09:56)
[2017-06-27] MEDS ORDERED: metoPROLOL SUCCINATE 25 MG TAB.SR.24H (FP) PO SCH (10:00)
--- NOTE | 2017-06-27 10:36 | PN ---
Progress Note (short form) - Note Progress Note: POD # 1 sitting in chair / ambulating well tolerating diet well will advance Vital Signs Period Temp Pulse Resp BP Sys/Miller Pulse Ox Last 24 Hr 97.3 F-98.8 F 63-94 14-20 94-117/44-69 97-100 neck supple heart s1/s2 Lungs clear bilat abd distended / tender decreased BS / surgical sites clean ext no calf tenderness no edema CBC,CMP WBC 11.1 K/mm3 (4.0-10.0) H D 06/27/17 07:30 RBC 4.40 M/mm3 (3.60-5.2) 06/27/17 07:30 Hgb 12.1 GM/dL (10.7-15.3) 06/27/17 07:30 Hct 36.8 % (32.4-45.2) 06/27/17 07:30 MCV 83.6 fl (80-96) 06/27/17 07:30 MCH 27.4 pg (25.7-33.7) 06/27/17 07:30 MCHC 32.8 g/dl (32.0-36.0) 06/27/17 07:30 RDW 15.3 % (11.6-15.6) 06/27/17 07:30 Plt Count 276 K/MM3 (134-434) 06/27/17 07:30 MPV 8.8 fl (7.5-11.1) 06/27/17 07:30 Neutrophils % 76.1 % (42.8-82.8) 06/25/17 16:13 Lymphocytes % 18.3 % (8-40) D 06/25/17 16:13 Monocytes % 4.0 % (3.8-10.2) 06/25/17 16:13 Eosinophils % 0.8 % (0-4.5) 06/25/17 16:13 Basophils % 0.8 % (0-2.0) 06/25/17 16:13 Sodium 140 mmol/L (136-145) 06/27/17 06:30 Potassium 4.0 mmol/L (3.5-5.1) 06/27/17 06:30 Chloride 110 mmol/L (98-107) H 06/27/17 06:30 Carbon Dioxide 21 mmol/L (21-32) 06/27/17 06:30 Anion Gap 9 (8-16) 06/27/17 06:30 BUN 7 mg/dL (7-18) 06/27/17 06:30 Creatinine 0.6 mg/dL (0.55-1.02) 06/27/17 06:30 Creat Clearance w eGFR > 60 (>60) 06/27/17 06:30 Random Glucose 86 mg/dL (74-106) 06/27/17 06:30 Lactic Acid 3.0 mmol/L (0.0-2.0) H* 06/25/17 17:21 Calcium 8.2 mg/dL (8.5-10.1) L 06/27/17 06:30 Total Bilirubin 0.5 mg/dL (0.2-1.0) D 06/27/17 06:30 AST 24 U/L (15-37) 06/27/17 06:30 ALT 34 U/L (12-78) 06/27/17 06:30 Alkaline Phosphatase 65 U/L (45-117) 06/27/17 06:30 Total Protein 6.0 g/dl (6.4-8.2) L 06/27/17 06:30 Albumin 3.0 g/dl (3.4-5.0) L 06/27/17 06:30 Total Amylase 71 U/L (25-115) 06/25/17 22:49 Lipase 155 U/L (73-393) 06/26/17 06:00 Serum , Qual Negative 06/25/17 16:13 Active Medications Docusate Sodium (Colace -) 300 mg PO HS [facility] Last Admin: 06/26/17 21:00 Dose: 300 mg Sodium Chloride (1/2 Normal Saline) 1,000 mls @ 75 mls/hr IV ASDIR STEFFANIE Last Admin: 06/26/17 20:57 Dose: 75 mls/hr Metoclopramide HCl (Reglan Injection -) 10 mg IVPB Q8H [facility] Last Admin: 06/27/17 06:05 Dose: 10 mg Metoprolol Succinate (Toprol Xl -) 25 mg PO DAILY [facility] Last Admin: 06/27/17 10:25 Dose: 25 mg Midazolam HCl (Versed -) 5 mg IVPUSH ONCE PRN PRN Reason: generalized seizure Stop: 06/27/17 23:07 Morphine Sulfate (Morphine Sulfate) 4 mg IVPB Q3H PRN PRN Reason: PAIN LEVEL 7 - 10 Ondansetron HCl (Zofran Injection) 4 mg IVPB Q4H PRN PRN Reason: NAUSEA Oxycodone HCl (Roxicodone -) 7.5 mg PO Q4H PRN PRN Reason: PAIN LEVEL 4 - 6 Pantoprazole Sodium (Protonix Iv) 40 mg IVPUSH BID [facility] Last Admin: 06/27/17 09:56 Dose: Not Given Polyethylene Glycol (Miralax (For Daily Use) -) 17 gm PO BID [facility] Last Admin: 06/27/17 09:56 Dose: Not Given assmt / plan 1) s/p cholecytectomy 06/26/17 POD #1 Gall stone pancreatitis 2/2 obstruction cholecytitis plan ambulate advance diet - well tolerated 2) cardiac arrhythmia loop recorder in place keep all electrolytes normalized continue Toprol xl 25 qday appreciate Cardiology follow up 3) constipation chronic / now made worse with use of narcotics for pain continue colace and miralax -- to continue as out patient Case discussed with Dr العراقي will d/c home today with follow up next week advance diet as tolerated Problem List - Problems (1) Pancreatitis due to biliary obstruction Code(s): K85.90 - ACUTE PANCREATITIS WITHOUT NECROSIS OR INFECTION, UNSP; K83.1 - OBSTRUCTION OF BILE DUCT (2) Cholecystitis, acute with cholelithiasis Code(s): K80.00 - CALCULUS OF GALLBLADDER W ACUTE CHOLECYST W/O OBSTRUCTION (3) Abdominal pain Code(s): R10.9 - UNSPECIFIED ABDOMINAL PAIN (4) History of radiofrequency ablation procedure for cardiac arrhythmia Code(s): Z98.890 - OTHER SPECIFIED POSTPROCEDURAL STATES (5) Nausea Code(s): R11.0 - NAUSEA (6) Paroxysmal supraventricular tachycardia Code(s): I47.1 - SUPRAVENTRICULAR TACHYCARDIA (7) Status post placement of implantable loop recorder Code(s): Z95.818 - PRESENCE OF OTHER CARDIAC IMPLANTS AND GRAFTS (8) Intermittent palpitations Code(s): R00.2 - PALPITATIONS (9) Patent foramen ovale Code(s): Q21.1 - ATRIAL SEPTAL DEFECT (10) Obesity (BMI 30.0-34.9) Code(s): E66.9 - OBESITY, UNSPECIFIED (11) History of robot-assisted laparoscopic hysterectomy Code(s): Z90.710 - ACQUIRED ABSENCE OF BOTH CERVIX AND UTERUS
--- NOTE | 2017-06-27 10:43 | DS ---
Physical Examination Vital Signs: Vital Signs Temperature 98.8 F 06/27/17 06:00 Pulse Rate 79 06/27/17 06:00 Respiratory Rate 18 06/27/17 06:00 Blood Pressure 98/45 06/27/17 06:00 O2 Sat by Pulse Oximetry (%) 97 06/26/17 21:00 Constitutional: Yes: Well Nourished, No Distress, Calm Eyes: Yes: Conjunctiva Clear, EOM Intact HENT: Yes: Atraumatic, Normocephalic Neck: Yes: Supple, Trachea Midline Cardiovascular: Yes: Regular Rate and Rhythm Respiratory: Yes: Regular, CTA Bilaterally Gastrointestinal: Yes: Normal Bowel Sounds, Abdomen, Obese, Distention, Tenderness (diffusely tender -- appropriately) ...Rectal Exam: Yes: Deferred Renal/: Yes: WNL Breast(s): Yes: WNL Extremities: Yes: WNL Edema: No Peripheral Pulses WNL: Yes Integumentary: Yes: WNL Neurological: Yes: Alert, Oriented ...Motor Strength: WNL Psychiatric: Yes: Alert, Oriented Labs: CBC, BMP 06/27/17 07:30 06/27/17 06:30 Discharge Summary Reason For Visit: CHOLECYSTECOMY PLANNED Current Active Problems Cholecystitis (Acute) Cholecystitis, acute with cholelithiasis (Acute) Pancreatitis due to biliary obstruction (Acute) Condition: Good - Instructions Referrals: Chaparrita Savage MD [Primary Care Provider] - Disposition: HOME - Home Medications Comprehensive Discharge Medication List: Ambulatory Orders Metoprolol Succinate [Toprol XL -] 25 mg PO DAILY 12/10/16 Docusate Sodium [Colace -] 300 mg PO HS capsule 06/27/17 Polyethylene Glycol 3350 [Miralax 119 gm Btl -] 17 gm PO BID bottle 06/27/17
[2017-06-27 10:47] VITALS: BP 112/63; PULSE 78
--- NOTE | 2017-06-27 10:55 | PN ---
Progress Note, Physician History of Present Illness: POD #1- s/p Laparoscopic cholecystectomy tolerated breakfast. No complaints, plan for d/c. - Current Medication List Current Medications: Active Medications Docusate Sodium (Colace -) 300 mg PO HS [facility] Last Admin: 06/26/17 21:00 Dose: 300 mg Metoclopramide HCl (Reglan Injection -) 10 mg IVPB Q8H [facility] Last Admin: 06/27/17 06:05 Dose: 10 mg Metoprolol Succinate (Toprol Xl -) 25 mg PO DAILY [facility] Last Admin: 06/27/17 10:25 Dose: 25 mg Midazolam HCl (Versed -) 5 mg IVPUSH ONCE PRN PRN Reason: generalized seizure Stop: 06/27/17 23:07 Morphine Sulfate (Morphine Sulfate) 4 mg IVPB Q3H PRN PRN Reason: PAIN LEVEL 7 - 10 Ondansetron HCl (Zofran Injection) 4 mg IVPB Q4H PRN PRN Reason: NAUSEA Oxycodone HCl (Roxicodone -) 7.5 mg PO Q4H PRN PRN Reason: PAIN LEVEL 4 - 6 Polyethylene Glycol (Miralax (For Daily Use) -) 17 gm PO BID [facility] Last Admin: 06/27/17 09:56 Dose: Not Given - Objective Vital Signs: Vital Signs Temperature 98.8 F 06/27/17 10:00 Pulse Rate 78 06/27/17 10:00 Respiratory Rate 18 06/27/17 10:00 Blood Pressure 112/63 06/27/17 10:00 O2 Sat by Pulse Oximetry (%) 97 06/26/17 21:00 Labs: CBC, BMP 06/27/17 07:30 06/27/17 06:30 Problem List - Problems (1) S/P laparoscopic cholecystectomy Code(s): Z90.49 - ACQUIRED ABSENCE OF OTHER SPECIFIED PARTS OF DIGESTIVE TRACT (2) History of radiofrequency ablation procedure for cardiac arrhythmia Code(s): Z98.890 - OTHER SPECIFIED POSTPROCEDURAL STATES (3) Paroxysmal supraventricular tachycardia Code(s): I47.1 - SUPRAVENTRICULAR TACHYCARDIA (4) Patent foramen ovale Code(s): Q21.1 - ATRIAL SEPTAL DEFECT (5) Status post placement of implantable loop recorder Code(s): Z95.818 - PRESENCE OF OTHER CARDIAC IMPLANTS AND GRAFTS (6) Syncope Code(s): R55 - SYNCOPE AND COLLAPSE Qualifiers: Syncope type: unspecified Qualified Code(s): R55 - Syncope and collapse Assessment/Plan 1. POD #1- s/p Laparoscopic cholecystectomy for management of symptomatic cholelithiasis in a patient with known history of supraventricular tachycardia status post radiofrequency ablation of an accessory pathway 2. History of recurrent palpitations with no clear evidence of recurrent supraventricular tachycardia, possible inappropriate sinus tachycardia currently on beta yoni therapy (post [employer]'s LINQ implant, loop recorder , declined repeat EP study) 3. History of syncope, neurocardiogenic syncope unclear if vasodepressor verses cardioinhibitory, unlikely to be vasovagal syncope 4. History of PFO, patent foramen ovale on daily Ecotrin therapy 5. History of post Robotic hysterectomy for management of endometriosis 6. History of post operative myoclonic jerks most likely related to anesthesia 7. History of migraine headaches PLAN: 1. Continue Toprol-XL 25 qd 2. Resume Ecotrin 81 qd once post-op hemostasis assured 3. D/c planning with follow-up in our office post discharge for further management [phone]
--- NOTE | 2017-06-27 15:40 | PATH ---
Surgical Pathology Report Patient Name: SIMONE AVILA Med. Rec. #: [id number] /Age/Gender: 1975 (Age: 42) / F Account: [id number] Location: [facility] MED/SURG Taken: 06/26/2017 Received: 06/26/2017 Reported: 06/27/2017 Physicians: Joaquín العراقي Specimen(s) Received GALLBLADDER Clinical History Acute cholecystitis and cholelithiasis Final Diagnosis GALLBLADDER, CHOLECYSTECTOMY: CHRONIC CHOLECYSTITIS AND CHOLELITHIASIS. Electronically Signed Diomedes Parks M.D. Gross Description Received in formalin, labeled "gallbladder," is a 8.5 x 5 x 2.5 cm. gallbladder with a 3.5 cm. in length portion of cystic duct attached. The outer surface is varies from smooth to shaggy. The lumen contains a single green cholelith measuring 0.6 cm in greatest dimension. The mucosa is green velvety and focally speckled. The wall of the gallbladder measures 0.1 cm. in thickness. Instrument Setter sections are submitted in one cassette. debora/06/26/2017
== END 2017-06-27 12:48 | disposition home or self-care (01) | DRG 417 ==
LOC: JER 13:42 → JERBED 17:14 → J8W 21:42
PROVIDERS: ADMIT Family Medicine; ATTEND Family Medicine
PROC: 3E1M38Z Irrigation of Peritoneal Cavity using Irrigating Substance, Percutaneous Approach (ICD-10-PCS; 2017-06-26)
PROC: 0FT44ZZ Resection of Gallbladder, Percutaneous Endoscopic Approach (ICD-10-PCS; principal; 2017-06-26 11:00)
DX: K80.10 Calculus of gallbladder with chronic cholecystitis without obstruction (principal); K85.10 Biliary acute pancreatitis without necrosis or infection; I47.0 Re-entry ventricular arrhythmia; I47.1 Supraventricular tachycardia; K42.0 Umbilical hernia with obstruction, without gangrene; E04.1 Nontoxic single thyroid nodule; E28.2 Polycystic ovarian syndrome; N80.9 Endometriosis, unspecified; K59.00 Constipation, unspecified; R10.9 Unspecified abdominal pain; R55 Syncope and collapse; R11.0 Nausea; R00.2 Palpitations; E66.9 Obesity, unspecified; Z68.34 Body mass index [BMI] 34.0-34.9, adult; Z85.3 Personal history of malignant neoplasm of breast; Z95.818 Presence of other cardiac implants and grafts; Z98.890 Other specified postprocedural states
CPT/HCPCS: 36415; 71046-TC-FY; 76705-TC; 80053; 81003; 81015; 82150; 83605; 83690; 84703; 85025; 85027; 87086; 88304-TC; 93005; 93010; 94760; 99283-25; J0131; J7030

== ENCOUNTER 2018-04-16 07:10 | Day surgery (SDC) | payer BC ==
[2018-04-16] MEDS ORDERED: ETOMIDATE 20 MG/10 ML AMPUL IVPUSH ONE (08:20)
[2018-04-16] MEDS ORDERED: MIDAZOLAM HCL 2 MG/2 ML SINGLE DOSE VIAL ONE ×2 (08:20)
[2018-04-16 08:58] VITALS: TEMP 99
[2018-04-16] MEDS ORDERED: ONDANSETRON 4 MG/2 ML VIAL ONE (10:40)
[2018-04-16 10:55] VITALS: BP 113/79; PULSE 75
[2018-04-16] MEDS ORDERED: ONDANSETRON 4 MG/2 ML VIAL IVPUSH ONE (11:00)
--- NOTE | 2018-04-17 17:33 | PATH ---
Surgical Pathology Report Patient Name: SIMONE AVILA [facility]. Rec. #: [id number] /Age/Gender: 1975 (Age: 43) / F Account: [id number] Location: [facility]-ENDOSCOPY Taken: 04/16/2018 Received: 04/16/2018 Reported: 04/17/2018 Physicians: Yuval Yang M.D. Specimen(s) Received A: BX DUODENUM B: BX BODY AND ANTRUM C: BX MID ESOPHAGUS Clinical History Epigastric pain despite medication Postoperative diagnosis: Erythema in body and antrum, hiatal hernia Final Diagnosis A. DUODENUM, BIOPSY: DUODENAL MUCOSA WITHOUT SIGNIFICANT PATHOLOGIC FINDINGS. B. STOMACH, ANTRUM AND BODY, BIOPSY: GASTRIC OXYNTIC MUCOSA WITH MILD CHRONIC GASTRITIS. IMMUNOHISTOCHEMICAL STAIN FOR H. PYLORI IS NEGATIVE. C. MID ESOPHAGUS, BIOPSY: SQUAMOUS MUCOSA WITH MILD VASCULAR CONGESTION AND MILD BASAL CELL HYPERPLASIA. NO DEFINITIVE FEATURES OF EOSINOPHILIC ESOPHAGITIS IDENTIFIED. Electronically Signed Linette Alonso M.D. Gross Description A. Received in formalin, labeled "duodenum" are 2 cobb, irregular portions of soft tissue measuring 0.4 and 0.5 cm. in greatest dimension. The specimens are submitted in toto in one cassette. B. Received in formalin, labeled "antrum and body biopsy" are 4 cobb, irregular portions of soft tissue ranging from 0.2-0.5 cm. in greatest dimension. The specimens are submitted in toto in one cassette. C. Received in formalin, labeled "mid esophagus" are 2 cobb, irregular portions of soft tissue averaging 0.2 cm. in greatest dimension. The specimens are submitted in toto in one cassette. DL04/16/2018 saudi04/16/2018
== END 2018-04-16 12:00 | disposition home or self-care (01) ==
LOC: JASU-ENDO 07:10
PROVIDERS: ATTEND Internal Medicine Gastroenterology
PROC: 0DB68ZX Excision of Stomach, Via Natural or Artificial Opening Endoscopic, Diagnostic (ICD-10-PCS; principal; 2018-04-16 09:00)
DX: K29.50 Unspecified chronic gastritis without bleeding (principal); K44.9 Diaphragmatic hernia without obstruction or gangrene
CPT/HCPCS: 88305-TC; 88342-TC

== ENCOUNTER 2021-01-05 04:48 | Day surgery (SDC) | payer BC ==
[2021-01-04 14:43] VITALS: BMI 37.8
[2021-01-05] MEDS ORDERED: MIDAZOLAM HCL 2 MG/2 ML SINGLE DOSE VIAL ONE ×2 (09:52)
[2021-01-05] MEDS ORDERED: ETOMIDATE 20 MG/10 ML AMPUL IVPUSH ONE (09:54)
[2021-01-05 10:47] VITALS: TEMP 97.1
[2021-01-05 11:50] VITALS: BP 106/67; PULSE 63
== END 2021-01-05 13:30 | disposition home or self-care (01) ==
LOC: JASU-ENDO 04:48
PROVIDERS: ATTEND Internal Medicine Gastroenterology
PROC: 0DB28ZX Excision of Middle Esophagus, Via Natural or Artificial Opening Endoscopic, Diagnostic (ICD-10-PCS; 2021-01-05)
PROC: 0DB68ZX Excision of Stomach, Via Natural or Artificial Opening Endoscopic, Diagnostic (ICD-10-PCS; 2021-01-05)
PROC: 0DJD8ZZ Inspection of Lower Intestinal Tract, Via Natural or Artificial Opening Endoscopic (ICD-10-PCS; principal; 2021-01-05 08:45)
DX: Z85.3 Personal history of malignant neoplasm of breast (principal); Z85.51 Personal history of malignant neoplasm of bladder; K29.50 Unspecified chronic gastritis without bleeding; K44.9 Diaphragmatic hernia without obstruction or gangrene
CPT/HCPCS: 88305-TC; 88342-TC

== ENCOUNTER 2021-03-08 12:40 | Emergency (ER) | payer BC ==
[2021-03-08 13:00] VITALS: BP 122/79; PULSE 102; TEMP 98.4; BMI 37.8
== END 2021-03-08 14:00 | disposition home or self-care (01) ==
LOC: JCOVINFU 12:40
DX: Z20.822 Contact with and (suspected) exposure to COVID-19 (principal)
CPT/HCPCS: 99283-25; C9803; U0003; U0005

== ENCOUNTER 2021-03-09 09:00 | Emergency (ER) | payer BC ==
[2021-03-09] MEDS ORDERED: CASIRIVIMAB/IMDEVIMAB 10 ML in SODIUM CHLORIDE 100 ML IVPB ONE (09:09)
[2021-03-09 09:43] VITALS: BMI 37.8
[2021-03-09 11:53] VITALS: TEMP 97.8
[2021-03-09 13:19] VITALS: BP 104/68; PULSE 66
== END 2021-03-09 13:36 | disposition home or self-care (01) ==
LOC: JER 09:00 → JCOVINFU 09:00
DX: U07.1 COVID-19 (principal)
CPT/HCPCS: 99284-25; Q0240

== ENCOUNTER 2022-04-29 08:56 | Emergency (ER) | payer BC ==
[2022-04-29 09:04] VITALS: BMI 38.5
[2022-04-29] MEDS ORDERED: ONDANSETRON 4 MG TABLET PO ONE (10:02)
[2022-04-29] MEDS ORDERED: ACETAMINOPHEN 1000 MG/100 ML BAG IVPB ONE (10:11)
[2022-04-29] MEDS ORDERED: MAG HYDROX/AL HYDROX/SIMETH 30 ML UNIT-DOSE CUP PO ONE (10:12)
[2022-04-29] MEDS ORDERED: FAMOTIDINE 20 MG TABLET PO ONE (10:12)
[2022-04-29] MEDS ORDERED: FAMOTIDINE 20 MG/50 ML IVPB 20 MG/50 ML MG IVPB ONE ×2 (10:15→10:18)
[2022-04-29] MEDS ORDERED: ONDANSETRON 4 MG/2 ML VIAL IVPUSH ONE (10:15)
[2022-04-29] MEDS ORDERED: ONDANSETRON 4 MG/2 ML VIAL ONE (10:17)
[2022-04-29] MEDS ORDERED: ACETAMINOPHEN INJECTION 100 ML IVPB ONE (10:17)
[2022-04-29] MEDS ORDERED: LACTATED RINGERS SOLUTION 1000 ML INFUS.BAG IV ONE ×2 (10:51→15:37)
[2022-04-29 11:50] LABS: HEMATOCRIT 48.2 % (32.4-45.2); HEMOGLOBIN 16.2 GM/dL (10.7-15.3); MCHC 33.6 g/dl (32.0-36.0); MEAN CELL VOLUME 86.4 fl (80-96); PLATELET COUNT 239 10^3/uL (134-434); RBC 5.58 M/mm3 (3.60-5.2); RDW 15.2 % (11.6-15.6); WHITE BLOOD COUNT 6.4 K/mm3 (4.0-10.0)
[2022-04-29] MEDS ORDERED: KETOROLAC TROMETHAMINE 10 MG TABLET PO ONE (11:59)
[2022-04-29 12:11] LABS: CALCIUM 9.5 mg/dL (8.5-10.1)
[2022-04-29 12:14] LABS: CREATININE 1.1 mg/dL (0.55-1.3)
[2022-04-29 12:17] LABS: TOT PROT 8.6 g/dl (6.4-8.2)
[2022-04-29] MEDS ORDERED: KETOROLAC TROMETHAMINE 30 MG/1 ML VIAL IVPUSH ONE (12:24)
[2022-04-29] MEDS ORDERED: KETOROLAC TROMETHAMINE 15 MG/ML VIAL ONE (12:25)
[2022-04-29] MEDS ORDERED: ACETAMINOPHEN 500 MG TABLET (FP) PO ONE (17:10)
[2022-04-29 17:29] LABS: EPI CELLS 26 /uL (0-25.1); HYALINE CASTS 2 /uL (0-3.1); URINE APPEARANCE CLEAR; URINE BACTERIA 211 /uL (0-1359); URINE BILIRUBIN NEGATIVE (NEGATIVE); URINE COLOR YELLOW; URINE GLUCOSE (UA) NEGATIVE (NEGATIVE); URINE KETONE 1+ (NEGATIVE); URINE LEUK ESTERASE NEGATIVE (NEGATIVE); URINE NITRITE NEGATIVE (NEGATIVE); URINE PROTEIN TRACE (NEGATIVE); URINE WBC 37 /uL (0-25.8)
[2022-04-29] MEDS ORDERED: methylPREDNISolone NA SUCC 125 MG/2 ML VIAL IVPUSH ONE (17:53)
[2022-04-29 18:06] LABS: URINE RBC 21 /uL (0-23.9)
[2022-04-29] MEDS ORDERED: methylPREDNISolone NA SUCC 125 MG/2 ML VIAL ONE (18:19)
[2022-04-29 18:29] VITALS: BP 128/84; PULSE 58; RESP 17; TEMP 97.7
== END 2022-04-29 19:05 | disposition home or self-care (01) ==
LOC: JER 08:56
PROC: 3E033GC Introduction of Other Therapeutic Substance into Peripheral Vein, Percutaneous Approach (ICD-10-PCS; principal; 2022-04-29)
DX: K52.9 Noninfective gastroenteritis and colitis, unspecified (principal)
CPT/HCPCS: 36415; 71045-TC-FY; 74178-TC; 80053; 81003; 83690; 84132; 85027; 87040; 87086; 93005; 93010; 99285-25; C9803-CS; Q9967; U0003; U0005